=== PATIENT | female | born 1965 | race Caucasian/White ===

== ENCOUNTER 2023-05-18 10:30 | Outpatient (OUT) | payer OTHER, SELFPAY ==
--- NOTE | 2023-05-18 10:33 | MM_ITS ---
Patient Name: TRUDY GARY MR#: [id number] : 1965 Exam Date: 05/18/2023 Ordering Doctor: Non-Staff Physician RADIOLOGY REPORT PROCEDURE: MM TOMOSYNTHESIS SCREENING BI COMPARISON: [facility] MAMM SCREEN 3D [place] CAD, 02/05/2022. MG MAMM SCREEN 3D [place] CAD, 05/06/2021. MG MAMM SCREEN [place] W CAD, 04/20/2020. MG MAMM [place] SCRN W CAD DIG, 07/21/2013. INDICATIONS: Screening Calculator Name NCI Breast Cancer Risk Assessment Tool 5 Year Breast Cancer Risk 1.20% Lifetime Breast Cancer Risk 8.70% Personal Breast Cancer No Personal Ovarian Cancer No Treatments None Family Cancers Grandmother-paternal with breast cancer at age ~45. LOCATION: [facility] BREAST COMPOSITION: Extremely dense, which lowers the sensitivity of mammography. FINDINGS: DIAGNOSTIC CATEGORY 2--BENIGN FINDING: RIGHT BREAST: No significant suspicious finding. No significant change has occurred. LEFT BREAST: No significant suspicious finding. Scattered benign-appearing nodules are present. No significant change has occurred. RECOMMENDATIONS: ROUTINE MAMMOGRAM AND CLINICAL EVALUATION IN 12 MONTHS. PLEASE NOTE: A NORMAL MAMMOGRAM DOES NOT EXCLUDE THE POSSIBILITY OF BREAST CANCER. A CLINICALLY SUSPICIOUS PALPABLE LUMP SHOULD BE BIOPSIED. Dictated by: Soy Thayer M.D. on 05/19/2023 at 11:30 Approved by: Soy Thayer M.D. on 05/19/2023 at 11:35
== END 2023-05-18 10:31 | disposition home or self-care (01) ==
LOC: MAMMO 10:30
DX: Z12.31 Encounter for screening mammogram for malignant neoplasm of breast (principal); Z80.3 Family history of malignant neoplasm of breast
CPT/HCPCS: 77063; 77067

== ENCOUNTER 2024-10-03 07:39 | Outpatient (OUT) | payer OTHER, SELFPAY ==
--- NOTE | 2024-10-03 07:41 | MM_ITS ---
Patient Name: TRUDY GARY MR#: [id number] : 1965 Exam Date: 10/03/2024 Ordering Doctor: MRS. Yuni Fenton NP RADIOLOGY REPORT PROCEDURE: MM TOMOSYNTHESIS SCREENING BI COMPARISON: MM TOMOSYNTHESIS SCREENING BI, 05/18/2023. MG MAMM SCREEN 3D [place] CAD, 02/05/2022. MG MAMM SCREEN 3D [place] CAD, 05/06/2021. MG MAMM [place] SCRN W CAD DIG, 07/21/2013. INDICATIONS: Screening Calculator Name NCI Breast Cancer Risk Assessment Tool 5 Year Breast Cancer Risk 1.40% Lifetime Breast Cancer Risk 8.30% Personal Breast Cancer No Personal Ovarian Cancer No Treatments None Family Cancers Grandmother-paternal with breast cancer at age ~45. LOCATION: [facility] BREAST COMPOSITION: The breasts are extremely dense, which lowers the sensitivity of mammography. FINDINGS: RIGHT BREAST: No significant suspicious finding. LEFT BREAST: No significant suspicious finding. DIAGNOSTIC CATEGORY 1--NEGATIVE. RECOMMENDATIONS: ROUTINE MAMMOGRAM AND CLINICAL EVALUATION IN 12 MONTHS. PLEASE NOTE: A NORMAL MAMMOGRAM DOES NOT EXCLUDE THE POSSIBILITY OF BREAST CANCER. A CLINICALLY SUSPICIOUS PALPABLE LUMP SHOULD BE BIOPSIED. Dictated by: Walter Chaudhry DO on 10/03/2024 at 09:36 Approved by: Walter Chaudhry DO on 10/03/2024 at 09:39
--- OUTSIDE RECORDS SUMMARY | 2024-10-03 07:42 | XMS_ITS | CCD ---
Author Organization [facility] Care Team Providers Care Vault Maker Name Role Phone Louisa Aragon APRN, CNP Primary Care Provider YUNI SANCHEZ Attending Unavailable PALAK PAZ Primary Care Unavailable MYRNA, DR SOY Parham Consulting Unavailable YUNI SANCHEZ Admitting Unavailable YUNI SANCHEZ Consulting Unavailable YUNI SANCHEZ Attending Unavailable PALAK PAZ Primary Care Unavailable MYRNA, DR SOY Parham Consulting Unavailable YUNI SANCHEZ Admitting Unavailable YUNI SANCHEZ Consulting Unavailable DO Palak Paz Primary Care Provider DO Oliver Schuster Emergency Provider Palak Paz Primary Care Unavailable Oliver De Los Santos Attending Unavailable Oliver De Los Santos Admitting Unavailable Louisa Aragon APRN, CNP Primary Care Provider STARR IGNACIO Referring Unavailable LOUISA MOSES Primary Care Unavailable LOUISA MOSES Primary Care Unavailable Sandi Pappas MD Primary Care Provider NANCY GUTIERREZ Attending Unavailable NANCY GUTIERREZ Attending Unavailable YUNI SANCHEZ Attending Unavailable NANCY GUTIERREZ Attending Unavailable Allergies Allergy Classification Reported Allergen(s) Allergy Type Date of Onset Reaction(s) Facility Sulfamethoxazole / Trimethoprim (1 source) Sulfamethoxazole / Trimethoprim Drug Allergy 09-26-19 [facility] (6 sources) Sulfamethoxazole / Trimethoprim Drug Allergy 09-26-19 [facility] (1 source) Sulfamethoxazole / Trimethoprim Drug Allergy [facility] Repository (1 source) Misc-ENV; Translations: [Misc-ENV] Propensity to adverse reactions (disorder) [facility] Repository (4 sources) alatrofloxacin Drug Allergy 09-04-19 Other (See Comments), [facility] Cat Hair Extract Drug Allergy 09-04-19 Other (See Comments) [facility] (4 sources) trovafloxacin Drug Allergy 09-04-19 Other (See Comments), Other, Unknown [facility] (3 sources) Cat Hair Extract Propensity to adverse reactions 09-04-19 Other [facility] Medications Current Medications Medication Drug Class(es) Dates Sig (Normalized) Sig (Original) [id number] 200 actuat albuterol 0.09 mg/actuat metered dose inhaler (6 sources) beta2-Adrenergic Agonist Start: 04-12-2024 take 1 puff(s) by inhalation every six hours albuterol HFA 90 mcg/act inhaler Inhale 1 puff every 6 (six) hours if needed for shortness of breath 04/12/2024 Active Start: 09-08-2022 take 2 puff(s) by inhalation every four hours as needed for wheezing albuterol sulfate HFA (PROVENTIL;VENTOLIN;PROAIR) 108 (90 Base) MCG/ACT inhaler Indications: Mild intermittent asthma without complication Inhale 2 puffs into the lungs every 4 hours as needed for Wheezing 6 each 1 09/08/2022 Active Start: 06-29-2020 albuterol sulf ate HFA 108 (90 Base) MCG/ACT inhaler clobetasol propionate 0.0005 mg/mg topical ointment (2 sources) Corticosteroid Start: 07-16-2021 clobetasol (TEMOVATE) 0.05 % ointment apply to hands TWICE DAILY for up to 3 (THREE) weeks. resume NEEDED for flares 0 07/16/2021 Active crisaborole 0.02 mg/mg topical ointment (1 source) Start: 05-29-2022 EUCRISA 2 % OI NT fluticasone propionate 0.05 mg/actuat metered dose nasal spray (1 source) Corticosteroid take 2 spray(s) nasal route once daily fluticasone (FLONASE) 50 MCG/ACT nasal spray 2 sprays in each nostril Nasally Once a day 0 Active 60 actuat formoterol fumarate 0.005 mg/actuat / mometasone furoate 0.1 mg/actuat metered dose inhaler (4 sources) Corticosteroid, beta2-Adrenergic Agonist Start: 08-11-2022 DULERA 100-5 MCG/ACT inhaler Indications: Mild intermittent asthma without complication USE 2 INHALATIONS BY MOUTH TWICE DAILY 39 g 3 08/11/2022 Active Start: 09-13-2020 DULERA 100-5 M CG/ACT inhaler levothyroxine sodium 0.05 mg oral tablet (7 sources) l-Thyroxine Start: 09-29-2023 take 1 tablet by mouth once daily levothyroxine (Synthroid, Levoxyl) 50 MCG tablet Take 1 tablet by mouth Daily 09/29/2023 Active Start: 10-15-2022 take 1 tablet by mariusz th once daily levothyroxine (SYNTHROID) 50 MCG tablet Indications: Hypothyroidism, unspecified type TAKE 1 TABLET BY MOUTH DAILY 90 tablet 3 10/15/2022 Active Start: 05-16-2021 take 1 tablet by mariusz th once daily levothyroxine (SYNTHROID) 50 MCG tablet Indications: Hypothyroidism, unspecified type TAKE 1 TABLET BY MOUTH DAILY 90 tablet 3 05/16/2021 Active Start: 12-26-2020 take 1 tablet by mariusz th once daily levothyroxine (SYNTHROID) 50 MCG tablet Indications: Hypothyroidism, unspecified type Take 1 tablet by mouth Daily 90 tablet 1 12/26/2020 Active minocycline 100 mg oral capsule (2 sources) Tetracycline-class Drug Start: 09-20-2020 minocy burch (MINOCIN;DYNACIN) 100 MG capsule Multiple Vitamin (MULTIVITAMIN ADULT PO) (2 sources) Multiple Vitamin (MULTIVITAMIN ADULT PO) Take by mouth 0 Active Probiotic Product (PROBIOTIC ADVANCED PO) (2 sources) Probiotic Produc t (PROBIOTIC ADVANCED PO) Take by mouth 0 Active ruxolitinib (3 sources) Start: 10-19-2023 Ruxolitinib Ph osphate (Opzelura) 1.5 % cream Indications: Other atopic dermatitis Apply to affected areas, once a day when flared, 30 day supply 60 g 11 10/19/2023 Active Completed/Discontinued Medications Medication Drug Class(es) Dates Sig (Normalized) Sig (Original) barium sulfate (READI-CAT 2) 2 % suspension 450 mL (1 source) Start: 08-20-2021 End: 08-20-2021 barium sulfate (READI-CAT 2) 2 % suspension 450 mL gadobenate dimeglumine (MULTIHANCE) injection 20 mL (1 source) Start: 01-30-2021 End: 01-30-2021 gadobenate dimeglumine (MULTIHANCE) injection 20 mL iopamidol (ISOVUE-300) 61 % injection 100 mL (1 source) Start: 08-20-2021 End: 08-20-2021 iopamidol (ISOVUE-300) 61 % injection 100 mL iopamidol (ISOVUE-370) 76 % injection 100 mL (1 source) Start: 11-27-2022 End: 11-27-2022 iopamidol (ISOVUE-370) 76 % injection 100 mL 50 ml sodium chloride 9 mg/ml injection (1 source) Start: 11-27-2022 End: 11-27-2022 0.9 % sodium chloride bolus Problems Problem Classification Problem Date Documented Date Episodic/Chronic Abdominal pain (3 sources) Generalized abdominal pain; Translations: [Generalized abdominal pain] Onset: 11-27-2022 Episodic Allergic reactions (2 sources) Atopic dermatitis; Translations: [Other atopic dermatitis] 04-18-2024 Chronic Asthma (1 source) Moderate persistent asthma with (acute) exacerbation; Translations: [Moderate persistent asthma with (acute) exacerbation] Onset: 08-21-2022 Chronic Diverticulosis and diverticulitis (2 sources) Diverticulitis of intestine; Translations: [Diverticulitis of intestine, part unspecified, without perforation or abscess without bleeding] Onset: 11-27-2022 Chronic Other and unspecified benign neoplasm (2 sources) Melanocytic nevus of trunk; Translations: [Melanocytic nevi of trunk] 04-18-2024 Episodic Other eye disorders (1 source) Ocular pain, unspecified eye; Translations: [Ocular pain, unspecified eye] Onset: 04-09-2022 Episodic Other screening for suspected conditions (not mental disorders or infectious disease) (1 source) Ultrasound scan abnormal; Translations: [Abnormal findings on diagnostic imaging of other specified body structures] Chronic Other screening for suspected conditions (not mental disorders or infectious disease) (4 sources) Encounter for screening mammogram for malignant neoplasm of breast; Translations: [ENC SCR MAMMO MALIG NEOPLASM BREAST] Onset: 02-05-2022 Episodic Other skin disorders (1 source) Localized swelling of chest wall; Translations: [Localized swelling, mass and lump, trunk] Episodic Other skin disorders (1 source) Soft tissue swelling; Translations: [Localized swelling, mass and lump, trunk] Episodic Other skin disorders (2 sources) Milia; Translations: [Epidermal cyst] 04-18-2024 Episodic Other skin disorders (2 sources) Lentiginosis; Translations: [Other melanin hyperpigmentation] 04-18-2024 Episodic Other skin disorders (2 sources) Seborrheic keratosis; Translations: [Other seborrheic keratosis] 04-18-2024 Episodic Residual codes; unclassified (1 source) Family history of malignant neoplasm of breast; Translations: [FAMILY HX MALIG NEOPLASM OF BREAST] Onset: 02-07-2022 Episodic Results Test Name Value Interpretation Reference Range Facility Hemoglobin A1Con 09-30-2023 Glucose [Mass/Vol] 114 mg/dL Normal [facility] Comment on above: Result Comment: The ADA and AACC recommend providing the estimated average glucose result to permit better patient understanding of their HBA1c result. Performed at [facility], [address] [place] [address] . HbA1c (Bld) [Mass fraction] 5.6 % Normal 4.0-6.0 [facility] CBC With Platelet and Differ entialon 09-29-2023 Basophils (Bld) [#/Vol] 0.1 10*3/uL Normal 0.0-0.2 [facility] Comment on above: Performed By: #### C BCWD #### [facility] [address] [place] [address] Basophils/100 WBC (Bld) 1.5 % Normal [facility] Comment on above: Performed By: #### C BCWD #### [facility] [address] [place] [address] Eosinophils (Bld) [#/Vol] 0.4 10*3/uL Normal 0.0-0.7 [facility] Comment on above: Performed By: #### C BCWD #### [facility] [address] [place] [address] Eosinophils/100 WBC (Bld) 6.9 % Normal [facility] Comment on above: Performed By: #### C BCWD #### [facility] [address] [place] [address] Erythrocyte distribution width (RBC) [Ratio] 14.2 % Normal 11.5-14.5 [facility] Comment on above: Performed By: #### C BCWD #### [facility] [address] [place] [address] Hematocrit (Bld) [Volume fraction] 42.9 % Normal 37.0-47.0 [facility] Comment on above: Performed By: #### C BCWD #### [facility] [address] [place] [address] Hemoglobin (Bld) [Mass/Vol] 13.8 g/dL Normal 12.0-16.0 [facility] Comment on above: Performed By: #### C BCWD #### [facility] [address] [place] [address] Lymphocytes (Bld) [#/Vol] 2.2 10*3/uL Normal 1.0-4.8 [facility] Comment on above: Performed By: #### C BCWD #### [facility] [address] [place] [address] Lymphocytes/100 WBC (Bld) 36.3 % Normal [facility] Comment on above: Performed By: #### C BCWD #### [facility] [address] [place] [address] MCH (RBC) [Entitic mass] 29.7 pg Normal 27.0-31.3 [facility] Comment on above: Performed By: #### C BCWD #### [facility] [address] [place] [address] MCHC 32.2 % Low 33.0-37.0 [facility] Comment on above: Performed By: #### C BCWD #### [facility] [address] [place] [address] MCV (RBC) [Entitic vol] 92.5 fL Normal 79.4-94.8 [facility] Comment on above: Performed By: #### C BCWD #### [facility] [address] [place] [address] Monocytes (Bld) [#/Vol] 0.4 10*3/uL Normal 0.2-0.8 [facility] Comment on above: Performed By: #### C BCWD #### [facility] [address] [place] [address] Monocytes/100 WBC (Bld) 6.6 % Normal [facility] Comment on above: Performed By: #### C BCWD #### [facility] [address] [place] [address] Neutrophils (Bld) [#/Vol] 3.0 10*3/uL Normal 1.4-6.5 [facility] Comment on above: Performed By: #### C BCWD #### [facility] [address] [place] [address] Neutrophils/100 WBC (Bld) 48.5 % Normal [facility] Comment on above: Performed By: #### C BCWD #### [facility] [address] [place] [address] Platelets (Bld) [#/Vol] 321 10*3/uL Normal 130-400 [facility] Comment on above: Performed By: #### C BCWD #### [facility] [address] [place] [address] RBC (Bld) [#/Vol] 4.64 10*6/uL Normal 4.20-5.40 [facility] Comment on above: Performed By: #### C BCWD #### [facility] [address] [place] [address] WBC (Bld) [#/Vol] 6.1 10*3/uL Normal 4.8-10.8 [facility] Comment on above: Performed By: #### C BCWD #### [facility] [address] [place] [address] Comprehensive Metabolic Pane edwar 09-29-2023 Albumin [Mass/Vol] 4.2 g/dL Normal 3.5-4.6 [facility] Comment on above: Performed By: #### C MP #### [facility] [address] [place] [address] ALP [Catalytic activity/Vol] 60 U/L Normal 40-130 [facility] Comment on above: Performed By: #### C MP #### [facility] [address] [place] [address] ALT [Catalytic activity/Vol] 19 U/L Normal 0-33 [facility] Comment on above: Performed By: #### C MP #### [facility] [address] [place] [address] Anion gap [Moles/Vol] 10 mmol/L Normal 9-15 [facility] Comment on above: Performed By: #### C MP #### [facility] [address] [place] [address] AST [Catalytic activity/Vol] 22 U/L Normal 0-35 [facility] Comment on above: Performed By: #### C MP #### [facility] [address] [place] [address] Bilirubin [Mass/Vol] 0.4 mg/dL Normal 0.2-0.7 [facility] Comment on above: Performed By: #### C MP #### [facility] [address] [place] [address] Calcium [Mass/Vol] 9.2 mg/dL Normal 8.5-9.9 [facility] Comment on above: Performed By: #### C MP #### [facility] [address] [place] [address] Chloride [Moles/Vol] 102 mmol/L Normal 95-107 [facility] Comment on above: Performed By: #### C MP #### [facility] [address] [place] [address] CO2 [Moles/Vol] 25 mmol/L Normal 20-31 [facility] Comment on above: Performed By: #### C MP #### [facility] [address] [place] [address] Creatinine [Mass/Vol] 0.85 mg/dL Normal 0.50-0.90 [facility] Comment on above: Performed By: #### C MP #### [facility] [address] [place] [address] GFR 80.2 Normal >60 [facility] Comment on above: Result Comment: Eugenia atric calculator link [email or web address]://[email or web address].org/professionals/kdoqi/gfr_[email or web address] Effective Mar 17, 2022 These results are not intended for use in patients <18 years of age. eGFR results are calculated without a race factor using the 2020 CKD-EPI equation. Careful clinical correlation is recommended, particularly when comparing to results calculated using previous equations. The CKD-EPI equation is less accurate in patients with extremes of muscle mass, extra-renal metabolism of creatinine, excessive creatinine ingestion, or following therapy that affects renal tubular secretion. Performed By: #### C MP #### [facility] [address] [place] [address] Globulin (S) [Mass/Vol] 2.5 g/dL Normal 2.3-3.5 [facility] Comment on above: Performed By: #### C MP #### [facility] [address] [place] [address] Glucose [Mass/Vol] 81 mg/dL Normal 70-99 [facility] Comment on above: Performed By: #### C MP #### [facility] [address] [place] [address] Potassium [Moles/Vol] 4.5 mmol/L Normal 3.4-4.9 [facility] Comment on above: Performed By: #### C MP #### [facility] [address] [place] [address] Protein [Mass/Vol] 6.7 g/dL Normal 6.3-8.0 [facility] Comment on above: Performed By: #### C MP #### [facility] [address] [place] [address] Sodium [Moles/Vol] 137 mmol/L Normal 135-144 [facility] Comment on above: Performed By: #### C MP #### [facility] [address] [place] [address] Urea nitrogen [Mass/Vol] 11 mg/dL Normal 6-20 [facility] Comment on above: Performed By: #### C MP #### [facility] [address] [place] [address] Lipid Panelon 09-29-2023 Cholesterol [Mass/Vol] 209 mg/dL Critically high 0-199 [facility] Comment on above: Result Comment: ATP III Cholesterol Classification is Borderline High. Performed By: #### L IPID #### [facility] [address] [place] [address] Cholesterol in HDL [Mass/Vol] 53 mg/dL Normal 40-59 [facility] Comment on above: Result Comment: ATP III HDL Cholesterol Classification is Desirable. Expected Values: Males: >55 = No Risk 35-55 = Moderate Risk <35 = High Risk Females: >65 = No Risk 45-65 = Moderate Risk <45 = High Risk NCEP Guidelines: Third Report October 2000 >59 = negative risk factor for CHD <40 = major risk factor for CHD Performed By: #### L IPID #### [facility] [address] [place] [address] Cholesterol in LDL [Mass/Vol] 141 mg/dL Critically high 0-129 [facility] Comment on above: Result Comment: ATT III Classification is Borderline High. Performed By: #### L IPID #### [facility] [address] [place] [address] Triglyceride [Mass/Vol] 77 mg/dL Normal 0-150 [facility] Comment on above: Result Comment: ATP III Triglycerides Classification is Normal. Performed By: #### L IPID #### [facility] [address] [place] [address] TSH w/Reflexon 09-29-2023 TSH w/Reflex 1.070 uIU/mL Normal 0.440-3.86 [facility] Comment on above: Result Comment: Free T4 will automatically reflex with a TSH result of <0.270 or >4.200 Performed By: #### T SHR #### [facility] [address] [place] [address] CT ABDOMEN PELVIS W IV CONTR Eduardo 11-27-2022 CT ABDOMEN PELVIS W IV CONTRAST EXAMINATION: CT OF THE ABDOMEN AND PELVIS WITH CONTRAST 11/27/2022 9:16 am TECHNIQUE: CT of the abdomen and pelvis was performed with the administration of intravenous contrast. Multiplanar reformatted images are provided for review. Automated exposure control, iterative reconstruction, and/or weight based adjustment of the mA/kV was utilized to reduce the radiation dose to as low as reasonably achievable. COMPARISON: August 2021 HISTORY: ORDERING SYSTEM PROVIDED HISTORY: Lower abdominal pain, Acute diverticulitis TECHNOLOGIST PROVIDED HISTORY: Additional Contrast?->Radiologi st Recommendation STAT Creatinine as needed:->No Reason for exam:->r/o abd pin, diverticulitis What reading provider will be dictating this exam?->CRC FINDINGS: Lower Chest: Visualized portion of the lower chest demonstrates no acute abnormality. Organs: The liver is homogeneous. The gallbladder is absent. The pancreas and spleen are normal. The adrenal glands are normal. The kidneys are normal. GI/Bowel: There is no evidence of bowel obstruction. No evidence of abnormal bowel wall thickening or distension. Large amount stool in colon. There is moderate sigmoid diverticulosis. There may be subtle inflammation in the proximal sigmoid colon. No complication is seen. Feculent material is seen in distal small bowel loops. Pelvis: No pelvic mass, adenopathy, or fluid collection. Peritoneum/Retroperi toneum: No evidence of lymphadenopathy. Aorta is normal in caliber. Bones/Soft Tissues: No acute abnormality of the visualized osseous structures. IMPRESSION: Mild sigmoid diverticulitis without complication. Large amount of stool in colon with feculent material also seen in distal small bowel loops. Interpreted by: Jong Monterroso MD Signed by: Jong Monterroso MD 11/27/22 Final result Normal [facility] CT ABDOMEN PELVIS W IV CONTR AST Additional Contrast? Radiologist Recommendationon 11-27-2022 Mild sigmoid diverticulitis without complication. Large amount of stool in colon with feculent material also seen in distal small bowel loops. [facility] RADIOLOGY EXAMINATION: CT OF THE ABDOMEN AND PELVIS WITH CONTRAST 11/27/2022 9:16 am TECHNIQUE: CT of the abdomen and pelvis was performed with the administration of intravenous contrast. Multiplanar reformatted images are provided for review. Automated exposure control, iterative reconstruction, and/or weight based adjustment of the mA/kV was utilized to reduce the radiation dose to as low as reasonably achievable. COMPARISON: August 2021 HISTORY: ORDERING SYSTEM PROVIDED HISTORY: Lower abdominal pain, Acute diverticulitis TECHNOLOGIST PROVIDED HISTORY: Additional Contrast?->Radiologi st Recommendation STAT Creatinine as needed:->No Reason for exam:->r/o abd pin, diverticulitis What reading provider will be dictating this exam?->CRC FINDINGS: Lower Chest: Visualized portion of the lower chest demonstrates no acute abnormality. Organs: The liver is homogeneous. The gallbladder is absent. The pancreas and spleen are normal. The adrenal glands are normal. The kidneys are normal. GI/Bowel: There is no evidence of bowel obstruction. No evidence of abnormal bowel wall thickening or distension. Large amount stool in colon. There is moderate sigmoid diverticulosis. There may be subtle inflammation in the proximal sigmoid colon. No complication is seen. Feculent material is seen in distal small bowel loops. Pelvis: No pelvic mass, adenopathy, or fluid collection. Peritoneum/Retroperi toneum: No evidence of lymphadenopathy. Aorta is normal in caliber. Bones/Soft Tissues: No acute abnormality of the visualized osseous structures. [facility] RADIOLOGY Jong Monterroso MD - 11/27/2022 EXAMINATION: CT OF THE ABDOMEN AND PELVIS WITH CONTRAST 11/27/2022 9:16 am TECHNIQUE: CT of the abdomen and pelvis was performed with the administration of intravenous contrast. Multiplanar reformatted images are provided for review. Automated exposure control, iterative reconstruction, and/or weight based adjustment of the mA/kV was utilized to reduce the radiation dose to as low as reasonably achievable. COMPARISON: August 2021 HISTORY: ORDERING SYSTEM PROVIDED HISTORY: Lower abdominal pain, Acute diverticulitis TECHNOLOGIST PROVIDED HISTORY: Additional Contrast?->Radiologi st Recommendation STAT Creatinine as needed:->No Reason for exam:->r/o abd pin, diverticulitis What reading provider will be dictating this exam?->CRC FINDINGS: Lower Chest: Visualized portion of the lower chest demonstrates no acute abnormality. Organs: The liver is homogeneous. The gallbladder is absent. The pancreas and spleen are normal. The adrenal glands are normal. The kidneys are normal. GI/Bowel: There is no evidence of bowel obstruction. No evidence of abnormal bowel wall thickening or distension. Large amount stool in colon. There is moderate sigmoid diverticulosis. There may be subtle inflammation in the proximal sigmoid colon. No complication is seen. Feculent material is seen in distal small bowel loops. Pelvis: No pelvic mass, adenopathy, or fluid collection. Peritoneum/Retroperi toneum: No evidence of lymphadenopathy. Aorta is normal in caliber. Bones/Soft Tissues: No acute abnormality of the visualized osseous structures. IMPRESSION: Mild sigmoid diverticulitis without complication. Large amount of stool in colon with feculent material also seen in distal small bowel loops. [facility] Radiology Study observation (narrative) [facility] [employer] CT ABDOMEN PELVIS W IV CONTR AST Additional Contrast? Radiologist RecommendationOrdered By: Jong Monterroso on 11-27-2022 [facility] Work Phone: Trichmonas Vaginalis Screen (EIA)on 10-15-2022 Trichomonas Vaginalis Screen (EIA) Negative Normal [facility] Comment on above: Performed By: #### E TRIC #### [facility] [address] [place] [address] Wet [employer] On xie 10-15-2022 Wet Prep Clue Cellls None Seen Normal [facility] Comment on above: Performed By: #### W ETPR #### [facility] [address] [place] [address] Wet Prep Trichomonas See EIA Normal [facility] Comment on above: Performed By: #### W ETPR #### [facility] [address] [place] [address] Wet Prep Yeast None Seen Normal [facility] Comment on above: Performed By: #### W ETPR #### [facility] [address] [place] [address] Culture, Genitalon 3 Culture, Genital ORDER#: [id number] ORDERED BY: LOUISA MOSES SOURCE: Vagina Genital COLLECTED: 10/14/22 15:38 ANTIBIOTICS AT JACKELINE.: RECEIVED : 10/14/22 17:31 Culture, Genital FINAL 10/18/22 10:34 Cult,Genital: NO GROWTH Performed at [place] [id number] ([phone] Normal [facility] Comment on above: Performed By: #### C XGEN #### [facility] [address] [place] [address] XR CHEST (2 VW)on 08-21-2022 XR CHEST (2 VW) EXAMINATION: TWO XRAY VIEWS OF THE CHEST 08/21/2022 4:40 pm COMPARISON: None. HISTORY: ORDERING SYSTEM PROVIDED HISTORY: Moderate persistent asthma with acute exacerbation TECHNOLOGIST PROVIDED HISTORY: Reason for exam:->rule out pneumonia Is the patient ?->No What reading provider will be dictating this exam?->CRC FINDINGS: The lungs are without acute focal process. There is no effusion or pneumothorax. The cardiomediastinal silhouette is without acute process. The osseous structures are without acute process. IMPRESSION: No acute process. Interpreted by: Bao Martin MD Signed by: Bao Martin MD 08/21/22 Final result Normal [facility] MG MAMM SCREEN 3D JANAK CADon 02-05-2022 MG MAMM SCREEN 3D JANAK CAD Patient: TRUDY MCKEON Exam Date: 02/05/2022 : 1965 Gender:F Ordering : MRS. YUNI SANCHEZ COMMUNICATIONS ATTENDANT Admission #: [id number] Family : Order #: [id number] CLICK HERE TO VIEW EXAM RADIOLOGY REPORT PROCEDURE: MAMMOGRAM SCREENING 3D BILATERAL CAD COMPARISON: MG MAMM SCREEN 3D JANAK CAD, 05/06/2021. MG MAMM SCREEN JANAK W CAD, 04/20/2020. INDICATIONS: Screening mammography Calculator Name NCI Breast Cancer Risk Assessment Tool 5 Year Breast Cancer Risk 1.20% Lifetime Breast Cancer Risk 8.80% Personal Breast Cancer No Personal Ovarian Cancer No Treatments None Family Cancers Grandmother-paternal with breast cancer at age 45. LOCATION: [facility] BREAST COMPOSITION: Extremely dense, which lowers the sensitivity of mammography. FINDINGS: DIAGNOSTIC CATEGORY 2--BENIGN FINDING: RIGHT BREAST: No significant suspicious finding. No significant change has occurred. LEFT BREAST: No significant suspicious finding. Scattered benign-appearing nodules are present. No significant change has occurred. RECOMMENDATIONS: ROUTINE MAMMOGRAM AND CLINICAL EVALUATION IN 12 MONTHS. PLEASE NOTE: A NORMAL MAMMOGRAM DOES NOT EXCLUDE THE POSSIBILITY OF BREAST CANCER. A CLINICALLY SUSPICIOUS PALPABLE LUMP SHOULD BE BIOPSIED. Dictated by: Soy Thayer M.D. on 02/07/2022 at 12:35 Approved by: Soy Thayer M.D. on 02/07/2022 at 12:43 Normal [facility] CT ABDOMEN PELVIS W IV CONTR AST Additional Contrast? Radiologist Recommendationon 08-20-2021 Impression: 1. Acute diverticulosis coli with evidence of small microperforations are seen. 2. No hydronephrosis or appendicitis is seen All CT scans at this facility use dose modulation, iterative reconstruction, and/or weight based dosing [facility] RADIOLOGY Comparison: No prior History: Abdominal pain, history of diverticulitis Technique: CT ABDOMEN PELVIS W IV CONTRAST Helically Acquired CT of the abdomen and pelvis was performed following the administration of oral contrast and during the intravenous infusion of 100 mL of Isovue-370. Axial delayed images were also performed. Reformatted sagittal and coronal images were also obtained. Findings: The visualized bases of the lungs contain no consolidating pneumonia, pleural effusion or pneumothorax. There is bowel wall thickening of the sigmoid colon. There are diverticula seen in the colon and is most significant in the sigmoid colon. Pericolic stranding is noted. A small focus of air is seen in the anterior pelvis (series 2, image 70). 2 other small areas are seen more posteriorly (series 2, image 69). No free fluid is visualized. The gallbladder surgically absent. The liver, spleen, pancreas and gallbladder are unremarkable. No focal masses identified in the adrenal glands. Bilaterally both kidneys show uptake and excretion of contrast with no evidence for hydronephrosis or renal calculi. The appendix is normal. No aneurysm or dissection is present. A small umbilical hernia is noted that contains fat. No small bilateral inguinal hernias are seen that contain fat. The urinary bladder distends normally. The osseous structures contain no destructive lesions. Degenerative changes are seen and there is a rotoscoliosis noted. No destructive bony lesions are seen. [facility] ALEXI Morillo PatriciaDO - 08/20/2021 Comparison: No prior History: Abdominal pain, history of diverticulitis Technique: CT ABDOMEN PELVIS W IV CONTRAST Helically Acquired CT of the abdomen and pelvis was performed following the administration of oral contrast and during the intravenous infusion of 100 mL of Isovue-370. Axial delayed images were also performed. Reformatted sagittal and coronal images were also obtained. Findings: The visualized bases of the lungs contain no consolidating pneumonia, pleural effusion or pneumothorax. There is bowel wall thickening of the sigmoid colon. There are diverticula seen in the colon and is most significant in the sigmoid colon. Pericolic stranding is noted. A small focus of air is seen in the anterior pelvis (series 2, image 70). 2 other small areas are seen more posteriorly (series 2, image 69). No free fluid is visualized. The gallbladder surgically absent. The liver, spleen, pancreas and gallbladder are unremarkable. No focal masses identified in the adrenal glands. Bilaterally both kidneys show uptake and excretion of contrast with no evidence for hydronephrosis or renal calculi. The appendix is normal. No aneurysm or dissection is present. A small umbilical hernia is noted that contains fat. No small bilateral inguinal hernias are seen that contain fat. The urinary bladder distends normally. The osseous structures contain no destructive lesions. Degenerative changes are seen and there is a rotoscoliosis noted. No destructive bony lesions are seen. IMPRESSION: Impression: 1. Acute diverticulosis coli with evidence of small microperforations are seen. 2. No hydronephrosis or appendicitis is seen All CT scans at this facility use dose modulation, iterative reconstruction, and/or weight based dosing [employer] Phone: Radiology Study observation (narrative) [employer] Phone: CT ABDOMEN PELVIS W IV CONTR AST Additional Contrast? 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 MG MAMM SCREEN JANAK W CAD, 12/20/2018. INDICATIONS: Screening mammography Calculator Name NCI Breast Cancer Risk Assessment Tool 5 Year Breast Cancer Risk 1.20% Lifetime Breast Cancer Risk 9.00% Personal Breast Cancer No Personal Ovarian Cancer No Treatments None Family Cancers Grandmother-paternal with breast cancer at age 45. LOCATION: [facility] BREAST COMPOSITION: Extremely dense, which lowers the sensitivity of mammography. FINDINGS: DIAGNOSTIC CATEGORY 2--BENIGN FINDING: RIGHT BREAST: No significant suspicious finding. No significant change has occurred. LEFT BREAST: No significant suspicious finding. Scattered benign-appearing nodules are present. No significant change has occurred. RECOMMENDATIONS: ROUTINE MAMMOGRAM AND CLINICAL EVALUATION IN 12 MONTHS. PLEASE NOTE: A NORMAL MAMMOGRAM DOES NOT EXCLUDE THE POSSIBILITY OF BREAST CANCER. A CLINICALLY SUSPICIOUS PALPABLE LUMP SHOULD BE BIOPSIED. Dictated by: Soy Thayer M.D. on 05/07/2021 at 11:54 Approved by: Soy Thayer M.D. on 05/07/2021 at 11:59 Normal [facility] MRI CHEST W CONTRASTOrdered By: Louisa Moses on 02-01-2021 No suspicious mass or suspicious findings. Degenerative changes involving the sternoclavicular joints. [employer] Phone: EXAMINATION: MRI CHEST W CONTRAST CLINICAL HISTORY: Soft tissue swelling of the chest wall. Abnormal ultrasound. COMPARISONS: Soft tissue ultrasound 01/07/2021. Chest x-ray 09/25/2020. TECHNIQUE: Routine MRI of the chest wall, with and without contrast. Given 20 mL of intravenous MultiHance. RESULT: There is no suspicious mass. There is no suspicious enhancement. No destructive osseous lesions. Degenerative changes involving the bilateral sternoclavicular joints, mild, and symmetric, which appears to correlate with the finding on the recent ultrasound. Visualized musculature unremarkable. Visualized thorax grossly unremarkable within limits of the study. [employer] Phone: Juan Jose, [employer] Incoming Radiant Results From [employer] - 02/01/2021 8:53 AM EDT EXAMINATION: MRI CHEST W CONTRAST CLINICAL HISTORY: Soft tissue swelling of the chest wall. Abnormal ultrasound. COMPARISONS: Soft tissue ultrasound 01/07/2021. Chest x-ray 09/25/2020. TECHNIQUE: Routine MRI of the chest wall, with and without contrast. Given 20 mL of intravenous MultiHance. RESULT: There is no suspicious mass. There is no suspicious enhancement. No destructive osseous lesions. Degenerative changes involving the bilateral sternoclavicular joints, mild, and symmetric, which appears to correlate with the finding on the recent ultrasound. Visualized musculature unremarkable. Visualized thorax grossly unremarkable within limits of the study. IMPRESSION: No suspicious mass or suspicious findings. Degenerative changes involving the sternoclavicular joints. [employer] Phone: [employer] Phone: Coding Summary.on 01-07-2021 Coding Summary. [id number] Gh0bWw+PGhlYWQ+PE1FV NXxD35zfYZddD1YN3qUZ E8YEVMFPDTCIB0IIM2le CS6BAehA8KxoeLv NqsclMJxJC29UJw0QRF2 yQgcTTazgP9voWUrX4s5 UrUvPI29oL15COfxCOCc HfE6SaOcofjkuZDg O1naEqJgzIIyNog+PHRh YmxlIHdpZHRoPScxMDAl FpWpnQosHE9gEs5rPAUt LWNvbGxhcHNlOiBj f2tmFUZfPFqnZT6efBrl S5EozQY6TOBwu1y1Yz21 dHI+MNSzVQJ9nNkqENwh m131RdGmm8yjBWW0 zSCmXZpaGLI9Y34zj5Q8 APVpSLFvCYR1zUL8sC1p pCayckzeJ2XwzKLtQrF2 AGR8cWUszZ8niSxg tenjeA4hSmy+X45EMO1K RGSSVZ2SGry7I9ScNfzl dHI+VB09ZYMpWD30bHQo lHWgo2yzlQv6CnLs WUDnERY2fRmlOUshd7Nl XUKvZ68jaJUxh5F2ERHt gPztzULpFnXhjZY4nI6y PGmfyusne9getcdp Cqtwn2slwq73aQ48R80a NKycYNPkTXB9CLNbRERi lYafac6llH3bNl7+IDxj i2owt3gpgFv6JsDa DOZdwcGywEfvXBR5r5Hy Ay76S5CqvDhri4ChZvi1 kg57wMJxs8W9qOF2EIrj CGAicH9hJRwqOtT8 DGIqAcWwvO99sFMtDAyx Bw1ogJcsoJhgBH2mJVFv knqbWACksR6vSMNmiGWs lKyxBK8eVOYusldc o312WkJwGSM4UYEtbCBk C9NzoW3uXbOjTVGzKSCo B3FvbPWmQIrtZ865ZExv NgH1BQYluaShI5Yi RFDzzHhjKxL8v8W5Sd3Z l2GihzalOJH6QBcnSSN2 EeA7PiLdEyT1U7OuKuk5 VQHtsIykUB3gN9Ax FHJgltvmmyqfqOT4YOIm DVUlxX84iFZyNGzmKh1l p1B9g049AHNlYSQecY74 Xl2ahQdoYDVxnWIC rA8rwpyaw0izcoehBvPb ZKLlBPz6ZPn2PDLdsKek KoVlZTX7ZnO5NWL5qOFs qM3qqDbxljtkvW4f Oyc+P29ygW3dDOQ3JEP7 vphxCUTfyzNhYP26HU02 N1LjTuvrcYZgeUW+PGRp vcXtiYfmPD3uVxBe y5pii9ZeXUrcV8EtPSXc URlmQxg2LCQqXUE0zAN5 pY6xZXZlSVicf0Z3yZO3 Y3QubvLpdk2fl6om RZVqMLimR32gsTFdz8E1 RUDvmLH0TMPhkVkqArBa vO63Bvp+VZGulKatx3Ox Teqpz9vic1aofGf2 IjMwJSIgdmFsaWduPSJ0 f1HlFq57U35kXNeuVXJd NDIhCHTgAQRjxIlday4k nC7oJi6+PGNvbCB3 gHY1uB4sWIUnCaT1SByr G642MpGbmUTiVvlvw8lm d4rvoGt0TeExLRWwrjLz cWlcKTW8d6CsTp88 C79sJEbiQIVoFNEuZDZl TNPwgNsfmv1xeR6uNz3+ LY3ro9fohv55sD51lVI+ TYNbECV4xUvsPYon RTMfeI8tNKvrQhW4UMYl RcFmqU23sNHnWOnpPj1p wHnnfMkhLU6iFOMnoqsc l045RgUiw0ejKIYg eDPpHIxlDIU2J61kj8P7 PMOlRMJrBMS9sZL6tI6n bGlnbjogbGVmdDsgdmVy zGkyQRnxOMayN456 IHRvcDsnPlBhdGllbnQg HqJyWVz8A6TqBjc0AMDg sUljWB8adGBuDJbnZp7c oWxdeBchGQ4vAFIh sepbw213DbEzr4bzSMLu eOOsLNcvQPV9F19to8M0 FARdIYZeZJD3bSZ4mG4r bGlnbjogbGVmdDsg riHoqYifQTxnLLxuY331 IHRvcDsnPkJpcnRoIERh mVV2VO59US41bAMse1B1 vPR4H8XiUYXspuli fcmfdPW8SECdAAXttR76 Pa5bcHruDk9eZPPmODF7 BLWnpCOwX4YekA4aPsSo OCIrHDWeC7GrdSCy MZnlL713IWyoZtE0DVYn uoRlD9ApHXYzcHqtZxW0 g8R3Rx6BU8I0RA15SP20 xWNdc7D2fLL8W3Qn PWKdgvvnykhyqSV5MCSy DODjpP43Xg3ipWpuSh2k NPYtQZC2MJGxqYYzW2Do eW7vZbCwQWKzOFLo X7CayMPdBNoiZ670UOtg IuV0SZCumxDkD8KdTKFo gKnkYkF9a9U7Rt2KJYb0 JV57MB12zLWas2P3 aER8H3IsGWKeceyxxmrr sRV3HJMnORStaP31Mm1o iStlDg8wBCDtFYT7PNQn yJUaU1RmqV7gLmPj QDVnJPTnP8AotNYmKZhs D379ZOlmYcE7ZAKkdySi L9TbLTYqrYrrOeJ8k4C6 Ak4AESAkAX16HVX6 dVR9GC33AP17K0TaNnyw dGFibGU+PHRhYmxlIHdp ZHRoPScxMDAlJyBzdHls JJ2eUm6pULRyLPDu zGgnxRDmXnXpi0skVXTc SQygPH1pmXzqH0ZffDW1 URApc6o5Uj45W59fK0Fq dXA+QLAmdMV8dDW2 hN2oLrMqKhT0QXpnY074 PdStqVLvLfjvv8jxh8zl tUw1EmI4NPFxvqIxpDae KTO4w1KzNf76D77j IHdpZHRoPSIxNSUiIHZh vXtnav9cpJ9vWz5+PGNv wJG5qAP6dJ3kQrUxYdC1 GJhbW911VxYwpWSy Ujwdh5fxk2peaYa9ZrPp BIMrbzOeyEazMDU6b8Li Lv84V6WesYywn1VjUvj4 kf40nQTvc4P4eDU5 D2QbOECxnkuozETtcFky RE1kJRLqzdadWQDhnV7d CTZuD1s1MtBeKeY2HCui N6JpacW5ZGPogFMb XDrrJHM0B59jn0Q2ENMx IRLlVTP9zWQ5rB8keJtk bjogbGVmdDsgdmVydGlj EXmpGIbsH967AWWn lIxhPDHivB6qHZTelJYt dObpTK4xCUWhpiyjOwmK O9GMFNFQD74JUEPJA9Sb UzwvdGQ+PHRkIHN0 bJsvNDfuUURmhU0jFURf P0r8PqCyTeH0OOzsR9Qy DYUndxalYt27jE5zKuEv YxU5KVgiH7WewvM2 OTOerJEkWEqgGVX5T91q l4S7TRKxBRQvPZJ1eBV2 nH1zxZtmskruuSDyaDwc dmVydGljYWwtYWxp U124NREotRpiBpDbEwI9 AdY8Mje8Q7DcSqz9CWBo iPgnYC2jzNNkLDxlXg0h mNqfoLedEZ5jNQMe hultSBCljC1fNBApzCUn fXoeDV5aREYynbecs017 PwCrYMK1HZXcqIEdI5Dr nZ4bIoPfNEIfWXLz V2WzqRKsPMviV700NDmd KsF2SUXczbQsU2MyTUYb dPfkFkM2o2N5Bn08JvEC ZWFyczwvdGQ+PHRk IBG7jFydFZawCASwaM4f AQCyR5h2QqHcMsZ8EGao L0LyBCAzvjkbAa02nS6h DkUdLdX5MXkiX9Bm ghT7BIYxoQVnQObpUFA7 Z69fu5X8ACKlZCVpCCZ4 sYN2nB6xnZwszvtyuHRi dDsgdmVydGljYWwt JCdfT528LAJmbWvcKkZj bWFsZTwvdGQ+PHRkIHN0 hEguPVtzEYWezV3fBHLi O0h9IhAiVxH1NLcv E6AwQJIylwwtNl35wY1z EjQuBhU7VMcbH6GefpE1 HEQojTHfZYkaFVC7Z93a p4J5JJBoWBPfPTX4 yRF4wP5jaJsxxxoseWJp dDsgdmVydGljYWwtYWxp O047AAGauZmkJa39eJHu mUhwzgI1S8SjHdja dHI+IO37CGFtAD27gLNn iQEnl5gdjTr2GkDzLGFn IEW3hVyuJYfbw8RgCARv C94iiZDqz5M8LMHt kNupcZFwClJmfYA0sT5e NBklsfsvq8fgszlgVqrv n4ksyr05kQ34N11zKBrp ZHRoPSIzMCUiIHZh iNuwbu2qrJ3yAy3+PGNv hSH3lYY1tJ8sHeGbUhW4 TRicI999LaKzxXMeNcjd e5coz6qdjZi4ItFt GZUsstSavRkvMBO4i1Wy Iy28J35zIEedZLTwSXUa UPGiBCWgxSetjq7tzX3t Ii8+LQ5xc4tqsr30 lY90jAH+BUJjYWG5pImy AAghTUWxrP1yYTvmOlK6 ZGXsBnRdqW85aIThQGez Ni2dtVtlwVefEV8i SZQowjkom329YxXeo4uy XTXcxUTyAPmoYMR3T40k v2K2ISZxBKVfENQ7zCQ8 qI7iyBlbmreblQAw dDsgdmVydGljYWwtYWxp R881PMFhhQmmAkDtyTHn M5wmwqUXTV5bJnlriLX+ LYTmIWN8bFkwQLnj PQHgqW6sSXTmQ9h4DgHj JrH9PGmjB9OfogD9XARv kULuLKCbiXOJcP4icwqk l6oudmirYmWpLHJp BNx2XKt9ZEYocRafDcZa RVN4VvJ5HBP6lABwzT6l nBocjsykxV7mRwi+RklO OjwvdGQ+PHRkIHN0 nUfoEPyvXSNrwT3zTNNs Z4o2ZjOuKyA3DBqpP4Na zxP2HWEwxBSdCMVnjLKV hB2gqjqaj7oqkoig KoEpNYZtLFx4GBd9OWYb eFwgQxCsPKV0BgX1PGR4 sTKkvJ5vfAzuymfvgX3o Oyc+TVJOOjwvdGQ+ FGMjKRQ2tErjNVesIVAz wF0xSOHsN5k9YxItBmS4 OOjcD0HcgnX2CEHnoQMz BHRblHHOcN9iofdo m7bpmsgwCeBpWWChFYl5 QCc8XTXxxGqnVpXyJJL8 AdP5FTG7aKQwbJ0ggObx sinffG6pNjn+UGF5 SBQ5EF27HD85X8SkWxhl dGFibGU+PHRhYmxlIHdp ZHRoPScxMDAlJyBzdHls XD0tSu7zNCTuNIZx bGxh (more content not included)... Normal [facility] Coding Summary. [id number] Gh0bWw+PGhlYWQ+PE1FV LLhN85iiFFpaD4GN7eEU K7CTXFXPKVRMT9SQQ9bo OB2UJomM8MtoxPo QusicVNmKN13DIy2JVM4 lOqzUKurvR4wbIWzX4i1 CfGbEW80jG34KNpgGGIu HvD2HyYfjovmnCCs L3lcLzVqpTJpRla+PHRh YmxlIHdpZHRoPScxMDAl SfLfyXgzHA7cRj8tIRGt LWNvbGxhcHNlOiBj k3wjAADaODbrRH2qbMzo R9IeaMJ0QAAcy4d9Lj86 dHI+GMTxCCM3kExkGGcg h215VrRlz0rhQCG6 hAAgBCrqZSC2J63fu6H7 THEcMKTsCWE5hOB6mD9a vNewayopV3SdlLBrNuQ3 YWZ6pFQczL3jrJxg getbbL6hTfd+E88NQB7J GOZGDQ8GRjs3W4RlKjyy dHI+DJ78RPMbYH36rHPa kTJpn8tenSf0QlGp LCPjEYE9jBmqPGabf4Pj UVGpY30wkQNzo4C5ABRs kIqnvQGyMkQpeMV1tK1k ACdsqdtkk9tgtdxv Ioqjj6rgwp17sT27U64w CQcfFRGdROI3FDNrNLWs tGcwsg7lnK2rXw0+IDxj r4tnr5greJp5UdLc RUMavdUieFgkIYM7b1Xw En07U7VacJtdv4HeXai3 tw38vSArn2V8uJQ6WDxo DTBcvM3uJWtkDvO8 HUCmXnUbaV00uHXiVPqw Pu9hzYnycFgpSV1kNKCd pjlqSGVhzW1qXXJepHRl hRahSL0wRKHjiqfu t261TwEwDPG9LKJwdYJg M5RhcK4jZtTbQFOfFGUu R2DhiZZrXKewZ601OGmu WxQ1RGOrsyLxA1Mh BHGweZgjCnT6o8E8Ly6Y a0IvqujzLWD1LJngPCW6 TwTuKiFlBuQ3K3PeYgt8 QGGqqDgmQA4pO0To VAMqwpolxphazPB3LAYa RONexS18cJLeECunFu7o i9F5j708LLImOHHaiK61 Sd4niZfpFHInvUPR eX1bdwmfl2shvgkkAfMp RUTkXNe3BHn3PDNoeCgj RxKoBUU0SkS7TRM6eAFv mF4trRvndalboY7u Oyc+U71byQ8pNZP5HNL5 zlkcZCHhxwJsAL78JB44 P3ZqIdbceUHfcBG+PGRp vdGzkUxrKJ4eBlMp o1dcn9EaQXalP8KdUJWh ZInhAgj6GSPfYGR0lDX2 hN0kUYVwWJzze3D9mLC1 I3GhobHwsd1ho5ck VUIsWVntP97gcYNbj8E1 JITviAG4DVIgrPwqKvEv sQ86Pxb+JBNkiRnac9Do Oujnk4uiv3aksCp6 IjMwJSIgdmFsaWduPSJ0 z0OoKq16P82oRGkfKINi AICcLYLjAZSfgRepgn1a oA3eZm4+PGNvbCB3 kHF9jJ8qIXIcNxS8ZJum S567ZjOoyBPrPqdhl2wt u8pqwRq9BlQbQMSgcrRy lIbyKBG9g6CtNe66 U15rBNmuZMVoIPAqWQNg QXWtqKgcfk3ciU6kXz5+ QS1pp1edyk38iL41nVI+ EQAsTDZ9gYwcEYua SIMqhW2rNVtmEuF8DDKu HlAevQ52eVLeAXkwMw4f aVopcPyqWJ0hWGSgylwm b160EtPjh7ulQSXp nCOxPHpbPBH6V21zb2I0 IUPdELPzCLQ4uJA8qO0r bGlnbjogbGVmdDsgdmVy tEuzASwgPLykB200 IHRvcDsnPlBhdGllbnQg KhYlQYi4E3OgZge1LGKk bGhyWC7fuOFkPXelCa0l tRidaQjsXE0vFXWr umgcv144LeCmf9mtEKZa oRWiIGvtRJI5C23js0X3 OXLtNGTiNVX8iCB6bQ5n bGlnbjogbGVmdDsg zeSfaXebDNvzTXajA181 IHRvcDsnPkJpcnRoIERh pQI1RU34TJ49tWSyr6V4 hUR0Z8NwQTPwbvhp uhilzFQ0ZIThLLOpiW66 Lf4fhIyoTf8iULAiZJX0 ZRYwlAYvV4RnrM6wGcTc HDZiZYPzA5MurWXg XCotR907AKdrBsS7GERg oyYrY5TkAKRkfKryHeU4 p4Z7Wj2HW3Y0ZQ05PV44 oGYss3H1sLX0I7Hj YXDkijlbgfccmLE3FVHm HBEsbY84Pg3tqPcfZc4c KFKzCYJ4WZXkaHHaJ1Ke yT7eCcYmPLCaUDMt X5IgjXTnDQohP469TMys KgV7UCOhzoYvR8NwOGJz mUegTwR0n1J1Qw5HRFw4 NJ58HW69nBQfj8O6 oGE3O5TwVCWesntsdgcg cGG7QBQvIPTmnI14Oy4x oLvoCp9wBLWmSUK4WPJx fWVtP8ZgoC3sNzWc HFYlMWKcW4ApwWAuPVmv Q240RQylWwW0IAEatuWa W9PoOVVryCsdRaO6g9S6 Ls3ZBDLvNT08CNE0 iBG8TZ44PZ71J5EgDeef dGFibGU+PHRhYmxlIHdp ZHRoPScxMDAlJyBzdHls GZ2pKu4tBKGsFRLe zGyueAWnZnUmf4gdVZTg ZQpoJH1hsEctQ1AfhIC5 WGWaf9w2Hy63P19tZ5Ej dXA+GYPdjLW9lFE6 xO5eWwOlKpO6DDzdK098 PqDzcDUfZgcab3vix9ki hFa0HrU3PIItdsDfeGjj JLR0w2UeCw24Q09s IHdpZHRoPSIxNSUiIHZh yPedll2woW1vPe3+PGNv hSB1zCH9hA0cYlXeQpB8 IZhiM529AxXqkYAx Cluuk4mnp7cmyLa4JuQi LWRqjyPjjFilTCH7r0Od Il64S6PytJyqh1DaRer3 rb33gDAgm7J6xUS8 L9RpHIJiejnyrPQctOse ZS6zLYPxlgtlPAJhwR3d MCKsP0n1UyMkHaA3QBig T3PvbaD6WMFbvXHl EBhbIWB4E47uv0V0DALo MBJlOUU3hIO1dO6caOub bjogbGVmdDsgdmVydGlj GGjzQTdpW797WDYz sEmiDKXigT9oSFHoeFRh pHvkDG9nNNLcmshfIyyP D3ADYGXFS94AVBQGA1Xd UzwvdGQ+PHRkIHN0 nCdxDUskKRMrsG9yORZb Y6a0BrMoVyK3BZprJ5Zy SEKiwmbwHd68fQ2eRfRi ViL0GWmhN2ZesvZ1 QRFamREpDHkaKES4I40y o5L9BKGpPFOyRSP9qBP3 tP4xyGifpiohtYZwrJpt dmVydGljYWwtYWxp R507GXMiyGvzQrQaPrL7 GvV1Xri2N6NaSuo6WUJj iInsDO7ieYGjQMuwVx0g oSfigTyiAJ4zIFHh grakSEEhdA5mGNIszCQj bSwiUL6mZGJlbafhh310 DnUvKKQ4LOCstKXeU3Nm cG9xIrBfUGPmYKKk O2AbsAZrOMatL334IGan YcJ7YBHgegDaJ8KaGCLu lUssPeR6w6D0Xb95FdSL ZWFyczwvdGQ+PHRk QAZ7iRntHWudULCryY2x QDKzR5m2JfVtCfO4FSag H4BwBADpdojoEm20eJ6b ZjYmKsC2FPwwW3Nf cbT7GTPciTQeAEaaCIH8 A06ze3K0SIPtBRDuRKA0 yFP9bW7tuAavssgprXTm dDsgdmVydGljYWwt ROqoP331ICDtlRfeWeVp bWFsZTwvdGQ+PHRkIHN0 tKcwXPxyJVBnrR9jSGSw O6f1ZcFkPtI1HHkw Q6EpTWNvtdgpMn12hB5u SzPjInN9WCwrM8AbekB5 KSRjjDJiSBsxFMM6A84l i0S8YKXhEAOqIAG4 sON8bB2yzQfjikygpSZp dDsgdmVydGljYWwtYWxp R569UKNfnAawWe37rRUr qGqymrG2B9SqSfdu dHI+VW40DJEgTU20fKXm fTWze7obcAs9FoDlPZJq THE3sKvnCYqgo0DxWFMb I16kaRRwq4M0CDEk dFuykQDvQqCmrPO4vH1x THrahsujo9hyamsxYyky c1cjis03fP40K35pBNjy ZHRoPSIzMCUiIHZh zYbvku0qxF2mVp1+PGNv aVF6tMP3dO8lEfRyGiI7 GOfuP300LbYnnRRiTfeq b6bdu7kciLi1RgWo MNXnewEwsPynKOM3f2Xh Gh65H97hXRlsLNVvAIMq MTTuNNGezAxowr5awW8r Ii8+YL3ho3vfwj86 pK64mYX+XIVfRBK3dYkd GZhjZSOowJ2aCMmiQdC1 BIErCkByeP56cJMdWXxp Ix1dpLafvIqpXL5s JRCnbewbv753CnTul4za QYMxwUPaCUbcWHG8S97i h1O5LKZxIAVzDDA7aHW6 nK8epPtsbmuszBAo dDsgdmVydGljYWwtYWxp U712LTYzgXmzOmAxpJVi R4dcxmFFES7dGsgsrBJ+ OCQnNDD1pMzaRBfg BIEjrI5dNDDoN5x7KnKd OcD9AZttA6IosuN0GPQd zUYbQVMafKGHrU6jtohi f2jqvoxtPvMqMEAd CSg9MNa7OJTqtDopFwHl LLQ4WjG3LEB9tXUlyK2z jMpbnfhhqG4xZds+RklO OjwvdGQ+PHRkIHN0 eYaeADawCIApmV8vYBDg G7s7YfIlFqS9ASaxD7Fl fhM4PPJepXGmTUTayAOI qJ8spbvto0gogbgr ZiPfBAIvALy8OZx8ZUBd iDqkOlWwHYM7QlK9ZZZ1 gFMbdT3chVfyuegviI2b Oyc+TVJOOjwvdGQ+ YHThSCY0dBnrZCurBLZa oM7tUQQxC7b6KjWhPhG7 GOutZ8JpyzK2TWKgdIGs WWHhkPQDjK2fwfug g5rjlkacBrSvOPZoYRc8 QHj1PIRhgQtlJhTtSXJ9 HrN4ZXD3xKQgcZ2ohVoi dufcaZ1yPjz+UGF5 JWA9IS93HZ52J4JsBcif dGFibGU+PHRhYmxlIHdp ZHRoPScxMDAlJyBzdHls XN6aEb1gUJErCTTw bGxh (more content not included)... Normal [facility] PAP [id number] 01-07-2021 Cytology report Cyto stain Doc (Cvx/Vag) Note Invalid Interpretation Code [facility] Comment on above: Result Comment: TEST S RESULT FLAG UNITS REF RANGE LAB Clinician Provided Cytology Information Source.............[employer] Other..............IUD No. of containers..01 ThinPrep Vial DIAGNOSIS: 01 NEGATIVE FOR INTRAEPITHELIAL LESION OR MALIGNANCY. THIS SPECIMEN WAS RESCREENED PART OF OUR CHARGEBACK SPECIALIST PROGRAM. 01 Satisfactory for evaluation. Endocervical component may not be distinguished in cases of atrophy. 01 Nasrin Mcmahan, Client Support Consultant (ASC) 01 Demetria Mendes, Supervisory Client Support Consultant (ASCP) 01 Note 01 The Pap smear is a screening test designed to aid in the detection of premalignant and malignant conditions of the uterine cervix. It is not a diagnostic procedure and should not be used as the sole means of detecting cervical cancer. Both false-positive and false-negative reports do occur. Test Methodology: Note 01 The [place] [employer] Board [employer] Commissioners was unable to read this specimen. Therefore a manual review was performed. FLAG LEGEND: L-Low Normal,H-High Normal,LL-Alert Low,HH-Alert High <-Panic Low,>-Panic High,A-Abnormal,AA-Critical Abnormal Performed at: [address] [place] [address] Keisha Oreilly MD, Performed By: #### 1 [id number] #### [facility] [address] [place] [address] HPV 16+18+31+33+35+39+45+51+ 52+56+58+59+66+68 DNA Probe+sig amp Ql (Cvx) Negative Invalid Interpretation Code Negative [facility] Comment on above: Result Comment: This nucleic acid amplification test detects fourteen high-risk HPV types (16,18,31,33,35,39,45,51,52,56,58,59,66,68) without differentiation. Performed at: [address] [id number] MD Afia Valdes Performed at: =[address] [id number] MD Afia Valdes Performed By: #### 1 [id number] #### [facility] [address] [place] [id number] Coding Summary.on 01-02-2021 Coding Summary. [id number] Gh0bWw+PGhlYWQ+PE1FV LHaX75hyIJejJ8VH3eZN V1QYOTLOOTEBL7CDM6td ED1WWtfQ2CdhzYy PzeyfTAtCJ25AFl0IMP9 dVvgBNjsnS0yuVWmN0a3 MpUsEI35sP17SSuzYMGp GbF5FkUnhkrpqBVr H9biBtTvyCJvVpu+PHRh YmxlIHdpZHRoPScxMDAl TkBzoLhgVF2fNg5eDEWy LWNvbGxhcHNlOiBj y1nkLBKfZJdwMH1anWos N6QxcSO6KUIyc1k5Tb67 dHI+TAYaETG6dFtwPLmq q527HfIdx6buPZX4 jZWeKBtiOIL2V06xt7C5 NMDqWCYrZQD6qZY4bS5h uGfaxqylU9FlqOEvIhA7 NFI9xFUeeE1wjKqc ikunpV2rIku+J18WYF8A VCNCBK4AHkl7H2WcNhmp dHI+QS07ZPDaSU61rULj fLJyr0dmyMh1TuSv TWAfQRU1nAuuGHvap0Mz WOSvJ63dzCNyz0R8MCIq fWtdpVTeNwYxkLA7kT6a YEcqxvvtu6tfgepo Rjyvy7wfgg36cT41T90x VBijHRRnLUL9ETGzMYBh oRtfyt1wcW1eXq3+IDxj c5jgn3ndaSa5PeNx ACMucvAjzMzhMZC0e7Jt Vo65T8WxwYubv7BaLpn4 hb83eDCdw8Z1mPM0JKlo NWQdvG4eXYtwZfZ1 MAHbLaNvzM38zKRnEPce Pk0xtYbqdBnqAJ5gWKTc rwvkWPDtqE5bQDLkjYSe yXkpLM8wRADcgnkx n084SjLjVWM0YXYauWCn H6PiiH3kLqGiHULrOWFn L1QsyLKlCGdxI648DSpx JcT3MUKnlbFrZ1Gc QKFwbRllAuB4j5C0Zu0T e0FxhdkxIWP3WTxdBDP9 FmPpSaKiTkC2F1NfMzm7 IDUdyDdbCD5qA0Vh NPDhgfwzlrfewJD3BHLf FWAxjR56sDVmJAktIx2v i8O4t716DMGlXFRitT08 Dg9ilGhdWGMdzXVQ qK3dsalky8pgxaglWxKs PWWbARy2HSo1MFWofChp RkEbIHM0PbS0RUJ3iDSm cB8guJtfwldydH6g Oyc+R10mfL1aQJA5XGX6 kfuxNZLfvrItQN66VF52 Q0AgUgahqWKxkFE+PGRp uqBlwBfcQO0jOzIn v8fvp9PnNNbtL3TcZSMs OTlpFmb6YYGyNUG2hKA9 xQ5cLODrGXzfp7X0vCO6 D5YongVsoh6nt6zx OFHbSZawZ59wyUFjp1F6 CGByqQR1GOLkaOybGuBq nX45Dai+PEDgxVxay3Bs Rgbsx8slv3tfbCd7 IjMwJSIgdmFsaWduPSJ0 g6DzGu05O65uDCnsXIQl TYExZPRxWNOexPdpuy2v hI3eMc1+PGNvbCB3 dWD4iA0hZXNvWeJ9JYfj K051EnXthZMfRlsbx0tg z7nnhGv9RcPyNAMcqdKo jOwuCYA3n1NuGo03 L53bWZhoEFXfMEUiUFHb RBQlsLxnjg2cyV2cHd4+ WK4gz2guky12aG53mWD+ SYAfQQF9iBdhBJnm AMEvoX1hUKcfLoJ7YNGm OeTyhJ28jYOaUVuaDi1a nFpyxXssGL5wUCOxafse u554VmEcr0khSRXx eGFaLIfuVTL7H32qs8Q9 SGBcMBEaGIZ1qOS0fJ2m bGlnbjogbGVmdDsgdmVy bHvtGXgrDInvF892 IHRvcDsnPlBhdGllbnQg EeJxSMi6H4RuKuy7NYSj fTzcYK5orQQmHPssUa0h wFykrDmqJT9hHMOr dkqbp884KpJex3cdHEDt hDTsNJbuOEE0R34wb5X1 FGFpFDGoFBT0tCQ3dN9v bGlnbjogbGVmdDsg jcOjoWhyAMhnILalZ474 IHRvcDsnPkJpcnRoIERh fVD5IS00AT08bDOsq3N0 eYJ1F2MkPHMypvzu ndtyyEV8HFNnNGZrwS40 Hi8bnUcpCq9uYVPeLUZ7 DDJxeVFvO4SxbC2zUgUw YEMgGBNmV9FctKGh REmtG727ZWbcWpP3MZXz uyQjQ6JlUFDjcFwzRuB6 n4I1Hl3PU0Z4SP79SH98 tJGrc9Q4gRD5U7Gc DFTfqwsltiffqDM7MTBd IJDtsT86Bo0vrEwzVn9w YXJnOKX7OESakKZjY0Aq tW1fMfUsNWKmRRJx O6SceRShEBboO823QBap VcB5FIBmklQtS3EkESFa oMneFdA3q4O5Ao8ELVc8 GK25ZV01qKGnn7B3 oNE7O4EgJGIegqzbupkx lZM8ZTTmLDEhcQ90Ii4j fBtwCv1jXXBaHDY6OZGk bRIpN1YjsP9pTuBb PWVfPPWmH2TbnUYzDJdw E673RRrtPuM9DBCtbrHi L2ZoDKHjyKxzBjH1b3S7 Dw2DVDWfBV70NEW8 zDX5GR26PE13B1UtBpom dGFibGU+PHRhYmxlIHdp ZHRoPScxMDAlJyBzdHls GU3iYu6qTAQxMDJx kZizxMKwAtMem7dlTVDs PUdvLM4suUmuU8DjlPI0 ZGIlv7j9Hj55S49xU5Kz dXA+VTWzcEB0iOR9 yM8aGmBeDlH7VWfgJ280 NaEleSUjEtlsb8jrx7wh zPc2OvW8HDXzndUwxYyy CGT2i2AlGd42A53b IHdpZHRoPSIxNSUiIHZh tQdqtr6slI1pTi1+PGNv jWG1pIK0aE8uLkJxKbU3 XWjhX262KqLioGOj Tcoub1jxl3npsRu3OxZx EMQrccFfeNdrGPP2e2Ja Xb43P7VugQpnq1OlCdi3 ls92wBAzd1M2uZF2 C4XiZWElxlkriCBswTft YG0lFJRectvkNSHtwT8n GIZuO6f9MmDwEvX8JLor J5HisfH3VVXlbLCa SOobKGC8T01ok6S9QJKv BATbMLE3qVF1eX4gdIkv bjogbGVmdDsgdmVydGlj IWfiCOhxO123WGHj oXqkIDQkzY2oKZQjqCQw vNidUV4eQNEkvzvtYzkA P8FONRQYB13WAYXXK3Fr UzwvdGQ+PHRkIHN0 fAfdVEfiYRNyoE9bMZNq Z8j2TjJkGdE8XJrbB6Ct FXPzrzpgYw45jW0kNxEc KlK1BCejK0VwjbN7 DZWceHIrXZszEKD5Y77h c2Y8EJTwFKEwQXF7wQR4 xI2xzYiofbkjiEGtpXbi dmVydGljYWwtYWxp T045OIEmbVudIpOgDkN3 PoP3Yau1O1EsGcb4NTHn kQowQR9cnOWtYLjjLw2w rXvssGrqRT1rYPOd iydnLXEmaO8kIMHmdNTt mBziTT5lVSKtgqkqp494 VxJzRZY5SOPplYUpO0Zj jJ6gTaHvSJUsNSLs L9JthWXoBVirZ137ACyu YxL8SGCwbuRqR8ThDSYz tAnrCgT2c3G8Fb51MkEQ ZWFyczwvdGQ+PHRk UWQ2tQhrCKogEVMenC9j BAMgY8n8VaZvHwF9GKla S9BqFKKmuiotHx63xF3f JgPdQiC1WNbmK5Zh apC8LOBbxSByPMcdKNA4 Y67pe6G7RJPtOIJqFWV4 uFH4oJ3owXmimnomtYOn dDsgdmVydGljYWwt VMrlI417VGUnePunZrLo bWFsZTwvdGQ+PHRkIHN0 iXblOMomEWCwhB8rNPTa Q0m6XpTrUjV0KGhv L3CjBGPuvrurYp21eX7k RkMdBpI6CDrbX9SnqaR6 KRWeaSVfWBpnEER3K55c r7M9OZMcVSZeQRF2 wOH1fZ1guDtiizpnkNJq dDsgdmVydGljYWwtYWxp O338JBUsfBfrQsmrOzWI ms5kTU1pDewrgUH+ RR65iw92R1MeOpprOzv8 ZZQyONL4vBZ0zW5uHRRx GOrbc3U2mKQ4J8SrbtJj nr0cd1sqOZKmPUjx Q00ffXChx0P9CJXluAI5 GQYfmOtxNdMzvD89Idr+ XTZyhFipa0EyNrgbk9iw n7uqnLr3AeMaSWEe gbQdoUjkDKK1c4FmUa76 E18hOAkgVUUkFNNeMAQc IFSubNszzt5zrF2rPq8+ XZGbuOC2mHG3aL4n XvVpLmL8AOnmG556DeNx xUYaAixll4xyd6txtYb1 IjIwJSIgdmFsaWduPSJ0 l0XcUa81S9OnfBhg q2YxFuh2uk68rAMcr2S6 gOP6X2UrAKHsdqypyEBz pKxjJC9aMCYhgxcpQYMo sJ8eQEIcT3n0ErDa SlE1PSubL0DmbzI2RVZb eADyQCPysZFOcJ2mzybp v8wujeckAsZqCDPrVHs0 QOi4HJIqlRvvJcRn FHS4DdO6ZYR1fWVrzV4p mQuvumlaaI0pUxl+UGh5 k5soqMYyAY2bdTM6FI00 FR15tVHgs6W0hON3 W2EkEPRxetbinxxisJO0 MDCpNXKxmR75Zb8moIix Qd3nSCUyPMY2VPXfyGJr N6ZxbM2qIuSbEQOk DYVdS1XadNYqRVeeC606 IGmuDvH9RZJxulZbK3Bv ETJcpCcrTuM8c6V0Sv6S JA38FM38DK84yTBl z8Y9fFJ9J3RbPHPbxsjx hvemhEJ4DYQnPWJtiU84 Dj8yoDjmAi5jUZPtFCC0 XKQjtIQfW5DjcN1m TtBjBDKlXDPyL5SzcWJs DCjvO643WBcpStV2DWBf ebAhB9SoFTXtkAzbLrA7 g9M1Ci1OEd08DT65 RC17wFHly1M8sLM2P2Ve NNOsoznbqsobxJY4LDZw BPHetG03Dy5ibPcdTt3r SWXrVBD6SAJqmIQf N5HulP4xZqVwHSHnEBXy X4UwcHUiOLjdH515QLkp UlX5SATeexGbS6TpQQBk pGdtKsF7w4F9Qo3B SIxxbeq5G7EyBphtbIB+ ZF53UHBfAL45fVVbdTFg q2auuMb2FqByHYGlELS0 lVilLVhfc3VsNNTv Y29s (more content not included)... Normal [facility] Estradiolon 01-02-2021 E2 [Mass/Vol] 20.5 pg/mL Invalid Interpretation Code [facility] Comment on above: Result Comment: Adul t Female: Follicular phase 12.5 - 166.0 Ovulation phase 85.8 - 498.0 Luteal phase 43.8 - 211.0 Postmenopausal <6.0 - 54.7 1st trimester 215.0 - >4300.0 Michelle ECLIA methodology Performed at: [facility] [id number] PhD Ce Castro Performed By: #### 2 [id number] #### [facility] [address] [place] [address] FSHon 01-02-2021 Follitropin Qn 98.6 m[IU]/mL Invalid Interpretation Code [facility] Comment on above: Result Comment: Adul t Female: Follicular phase 3.5 - 12.5 Ovulation phase 4.7 - 21.5 Luteal phase 1.7 - 7.7 Postmenopausal 25.8 - 134.8 Performed at: [facility] [address] [id number] PhD Ce Castro Performed By: #### 2 [id number] #### [facility] [address] [place] [address] Ambulatory Clinical Summaryo n 12-31-2020 Ambulatory Clinical Summary {[id number]}CD:[id number] Normal [facility] Consent for Treatmenton 12-13 Consent for Treatment [id number] #1.00CD:127 Normal [facility] Gynecology Office/Clinic Not vanessa 12-31-2020 Gynecology Office/Clinic Note Chief Complaint Annual, Obstetric History History (0,0,0,2) # 1 Baby 1 Outcome Date: 12/13/2008 Outcome: Live Outcome or Result: Vaginal Gender: Female Gest Age: Fullterm Wt: -- Hospital: [facility]: -- Child's Name: -- Baby's Father: -- # 2 Baby 1 Outcome Date: 12/13/2013 Outcome: Live Outcome or Result: Vaginal Gender: Female Gest Age: Fullterm Wt: -- Hospital: -- [facility]: -- Child's Name: -- Baby's Father: -- HPI Staff 55 Years year old patient here for annual exam. Last pap .12-08-2019 Last mammogram 04-20-2020. Last colonoscopy 2017 or 2018. Method of contraception Mirena 10-16-2015 . History of Present Illness Agree with above staff HPI. Pt presents for annual exam today. She is requesting a pap as insurance will pay for it. She knows she is not due, but is requesting. Mirena October 2020. No periods or vaginal bleeding. She sometimes has hot flashes or night sweats. States she had uterine ablation before her IUD. Denies breast problems. Review of Systems ROS ? Provider Constitutional: No fever, No chills, No sweats, No weakness. No Weight change; No fatigue. Skin: No rash, No lesions. ENMT: No ear pain, No sore throat, No congestion. Respiratory: No shortness of breath, No cough, No orthopnea, No wheezing. Cardiovascular: No chest pain, No palpitations, No peripheral edema. Gastrointestinal: No nausea, No vomiting, No diarrhea, No GI bleeding. Genitourinary: No dysuria, No hematuria, No discharge, No pain. Gynecology: No abnormal vaginal discharge, No vaginal itching/burning, No vaginal dryness, No painful periods, No abnormal bleeding, No pelvic pain, No painful intercourse, No hot flashes Breast: No breast pain, No skin changes, No masses/lumps, No nipple discharge. Musculoskeletal: No back pain, No trauma. Neurological: No headache, No dizziness, No numbness, No weakness. Psychiatric: No sleeping problems, No irritability, No mood swings/depression. Heme/Lymph: No bleeding tendency, No bruising tendency, No petechiae, No swollen. Physical Exam Vitals & Measurements BP: 120/78 HT: 170.5 cm HT: 170.5 cm WT: 88.5 kg WT: 88.5 kg BMI: 30.44 General Exam: Constitutional: alert, no acute distress, well hydrated, well developed, well nourished. Skin: normal color, no rashes, no lesions, no unusual bruising. Head: atraumatic, normocephalic. Eyes: EOM intact, no nystagmus, no icterus. Ears: no external deformities, gross hearing intact. Breasts: skin/areolae normal, no masses, no nipple discharge, no erythema/warmth/tend erness, axillae normal. Respiratory: no respiratory distress. Abdomen: nondistended, nontender, no guarding, no masses. Spine: normal mobility, no deformities. Extremities: no deformities, no clubbing, no cyanosis, no edema. Neurol: normal, cranial nn II-XII grossly intact, sensation intact, motor intact, station & gait normal. Psych: oriented to all spheres, affect and mood appropriate, normal interaction, good eye contact. Pelvic Exam: Vulva: normal appearance, normal hair distribution, no lesions or masses. Urethra: normal, no masses, non-tender, no discharge. Bladder: normal, non-tender, non-distended. Vagina: normal, rugated, physiologic discharge, no lesions, no masses, adequate pelvic support. Cervix: normal, midposition, no motion tenderness, no lesions. IUD strings noted in cervical os. Strings grasped, IUD removed without difficulty. IUD device intact. Pt tolerated well. Uterus: smooth, mobile, non-tender, adequate support. Adnexa: normal, no masses, mobile, nontender. Assessment/Plan 1. 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 Due 2024. Follow up in 1 year or with problems. Ordered: Est Preventative 40 to 64 years [address] PAP w/ HPV and Genotype rflx 2. Screening mammogram, encounter for (Z12.31: Encounter for screening mammogram for malignant neoplasm of breast) Recommend monthly self breast exams. Schedule mammogram in April. Ordered: Est Preventative 40 to 64 years [address] [place] Mamm Screen w/CAD if perf and 3D Janak 3. Encounter for IUD removal (Z30.432: Encounter for removal of intrauterine contraceptive device) Discussed IUD is now . IUD replacement vs removal alone. Pt is concerned over . Plan to remove and pt wants labs checked to see if she is in fact menopausal. Ordered: Removal IUD 71880 4. Perimenopause (N95.1: Menopausal and female climacteric states) Ordered: Est Preventative 40 to 64 years [address] Estradiol Level FSH Level Follow-up With When Contact Information Yuni MUÑOZ In [address] [place] [address]- Additional Instructions: Problem List/Past Medical History Ongoing No qualifying data Historical Abnormal (more content not included)... Normal [facility] Comment on above: Result Comment: Elec tronically Signed By: Yuni MUÑOZ\.br\Date and Time Signed: 12/31/20 17:00 EDT PAP [id number] 12-31-2020 [employer] BROOM[employer]ONE Normal [facility] Comment on above: Performed By: #### 1 [id number] #### [facility] [address] [place] [address] Gynecological Body Site CERVIX Normal [facility] Comment on above: Performed By: #### 1 [id number] #### [facility] [address] [place] [address] Other Patient Information IUD Normal [facility] Comment on above: Performed By: #### 1 [id number] #### [facility] [address] [place] [address] Previous Cytology Negative Normal [facility] Comment on above: Performed By: #### 1 [id number] #### [facility] [address] [place] [address] Patient Educationon 01-01-20 Patient Education Health Recommendations for Postmenopausal Women Respected and ongoing research has looked at the most common causes of , disability, and poor quality of life in postmenopausal women. The causes include heart disease, diseases of blood vessels, diabetes, depression, cancer, and bone loss (osteoporosis ). Many things can be done to help lower the chances of developing these and other common problems: CARDIOVASCULAR DISEASE Heart Disease: A heart attack is a medical emergency. Know the signs and symptoms of a heart attack. Below are things women can do to reduce their risk for heart disease. ? Do not smoke. If you smoke, quit. ? Aim for a healthy weight. Being overweight causes many preventable deaths. Eat a healthy and balanced diet and drink an adequate amount of liquids. ? Get moving. Make a commitment to be more physically active. Aim for 30 minutes of activity on most, if not all days of the week. ? Eat for heart health. Choose a diet that is low in saturated fat and cholesterol and eliminate trans fat. Include whole grains, vegetables, and fruits. Read and understand the labels on food containers before buying. ? Know your numbers. Ask your caregiver to check your blood pressure, cholesterol (total, HDL, LDL, triglycerides) and blood glucose. Work with your caregiver on improving your entire clinical picture. ? High blood pressure. Limit or stop your table salt intake (try salt substitute and food seasonings). Avoid salty foods and drinks. Read labels on food containers before buying. Eating well and exercising can help control high blood pressure. STROKE Stroke is a medical emergency. Stroke may be the result of a blood clot in a blood vessel in the brain or by a brain hemorrhage (bleeding ). Know the signs and symptoms of a stroke. To lower the risk of developing a stroke: ? Avoid fatty foods. ? Quit smoking. ? Control your diabetes, blood pressure, and irregular heart rate. THROMBOPHLEBITIS (BLOOD CLOT) OF THE LEG Becoming overweight and leading a stationary lifestyle may also contribute to developing blood clots. Controlling your diet and exercising will help lower the risk of developing blood clots. CANCER SCREENING ? Breast Cancer: Take steps to reduce your risk of breast cancer. ? You should practice breast self-awareness. This means understanding the normal appearance and feel of your breasts and should include breast self-examination. Any changes detected, no matter how small, should be reported to your caregiver. ? After age 40, you should have a clinical breast exam (CBE) every year. ? Starting at age 40, you should consider having a mammogram (breast X-ray ) every year. ? If you have a family history of breast cancer, talk to your caregiver about genetic screening. ? If you are at high risk for breast cancer, talk to your caregiver about having an MRI and a mammogram every year. ? Intestinal or Stomach Cancer: Tests to consider are a rectal exam, fecal occult blood, sigmoidoscopy, and colonoscopy. Women who are high risk may need to be screened at an earlier age and more often. ? Cervical Cancer: ? Beginning at age 30, you should have a Pap test every 3 years as long as the past 3 Pap tests have been normal. ? If you have had past treatment for cervical cancer or a condition that could lead to cancer, you need Pap tests and screening for cancer for at least 20 years after your treatment. ? If you had a hysterectomy for a problem that was not cancer or a condition that could lead to cancer, then you no longer need Pap tests. ? If you are between ages 65 and 70, and you have had normal Pap tests going back 10 years, you no longer need Pap tests. ? If Pap tests have been discontinued, risk factors (such as a new sexual partner) need to be reassessed to determine if screening should be resumed. ? Some medical problems can increase the chance of getting cervical cancer. In these cases, your caregiver may recommend more frequent screening and Pap tests. ? Uterine Cancer: If you have vaginal bleeding after reaching menopause, you should notify your caregiver. ? Ovarian cancer: Other than yearly pelvic exams, there are no reliable tests available to screen for ovarian cancer at this time except for yearly pelvic exams. ? Lung Cancer: Yearly chest X-rays can detect lung cancer and should be done on high risk women, such as cigarette smokers and women with chronic lung disease (emphysema ). ? Skin Cancer: A complete body skin exam should be done at your yearly examination. Avoid overexposure to the sun and ultraviolet light lamps. Use a strong sun block cream when in the sun. All of these things are important in lowering the risk of skin cancer. MENOPAUSE Menopause Symptoms: Hormone therapy products are effective for treating symptoms associated with menopause: ? Moderate to severe hot flashes. ? Night sweats. ? Mood swings. ? Headaches. ? Tiredness. ? Loss of sex drive. ? Insomnia. ? Other symptoms. Horm (more content not included)... Normal [facility] Ambulatory Clinical Summaryo n 08-22-2020 Ambulatory Clinical Summary {[id number]}CD:[id number] [facility] Outside Mammographyon 2019 Outside Mammography [id number]# 1.00CD:127 [facility] Gynecology Office/Clinic Not vanessa 12-03-2018 Gynecology Office/Clinic Note Chief Complaint Here for Annual Last pap 11/24/17 negative, pt does want a pap. States her insurance covers it yearly Obstetric History History (0,0,0,2) # 1 Baby 1 Outcome Date: 12/13/2008 Outcome: Live Outcome or Result: Vaginal Gender: Female Gest Age: Fullterm Wt: -- Hospital: [facility]: -- Child's Name: -- Baby's Father: -- # 2 Baby 1 Outcome Date: 12/13/2013 Outcome: Live Outcome or Result: Vaginal Gender: Female Gest Age: Fullterm Wt: -- Hospital: [facility] Labor: -- Child's Name: -- Baby's Father: -- History of Present Illness Patient is 53 Years old here for annual exam. 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 Review of Systems PHQ Score Initial Depression Screen Score: 0 ROS ? Provider Constitutional: No fever, No chills, Nos weats, No weakness.No Weight change;No fatigue. Skin:No rash,No lesions. Issues with skin, has frequent rashes, sees PCP Respiratory:No shortness of breath,No cough Cardiovascular:No chest pain,No palpitations,No peripheral edema. Gastrointestinal:No nausea,No vomiting,No diarrhea,No GI bleeding. Genitourinary:No dysuria,No hematuria,No discharge,No pain. Gynecology:No abnormal vaginal discharge,No vaginal itching/burning,No vaginal dryness,No painful periods,Yes abnormal bleeding,No pelvic pain,No painful intercourse,No hair loss/growth,No hot flashes, sexually active, Mirena IUD for AUB, due to remove in 2021 Breast:No breast pain,No skin changes,No masses/lumps,No nipple discharge. Musculoskeletal:No back pain,No trauma. Neurological:No headache,No dizziness,No numbness,No weakness. Psychiatric:No sleeping problems,No irritability,No mood swings/depression. Heme/Lymph:No bleeding tendency,No bruising tendency,No petechiae,No swollen lymph nodes Physical Exam Vitals & Measurements HR: 76(Peripheral) RR: 20 BP: 122/82 HT: 170.5 cm WT: 80.0 kg BMI: 27.52 General Exam: Constitutional: alert, no acute distress, well hydrated, well developed, well nourished. Skin: normal color, rash noted to B/L arms (seeing PCP), no lesions, no unusual bruising. Head: atraumatic, normocephalic. Eyes: EOM intact, no nystagmus, no icterus. Ears: no external deformities, gross hearing intact. Mouth: normal dentition Neck: supple, no adenopathy, no masses, thyroid normal size, no thyroid tenderness or nodules. Breasts: skin/areolae normal, no masses, no nipple discharge, no erythema/warmth/tend erness, axillae normal. Cardiovascular: RRR, no murmurs, no gallops, no edema. Respiratory: no respiratory distress. Abdomen: nondistended, nontender, no guarding, no masses. Spine: normal mobility, no deformities. Extremities: no deformities, no clubbing, no cyanosis, no edema. Neurol: normal, cranial nn II-XII grossly intact, sensation intact, motor intact, station & gait normal. Psych: oriented to all spheres, affect and mood appropriate, normal interaction, good eye contact. Pelvic Exam: Vulva: normal appearance, normal hair distribution, no lesions or masses. Urethra: normal, no masses, non-tender, no discharge. Bladder: normal, non-tender, non-distended. Vagina: normal, rugated, physiologic discharge, no lesions, no masses, adequate pelvic support. Cervix: normal, midposition, no motion tenderness, no lesions. Os noted, IUD strings noted, pap obtained and sent Uterus: smooth, mobile, non-tender, adequate support, anteverted. Adnexa: normal, no masses, mobile, nontender. Assessment/Plan Breast screening(Z12.31: Breast screening) Will schedule per [facility] at [facility] Discussed self breast exams Ordered: MA Mamm Screen w/CAD if performed bilat Visit for routine popcorn vendor exam(Z01.419: Visit for routine popcorn vendor exam) RTC annually or PRN Will notify of results Call with questions or concerns Discussed self breast exams Ordered: Initial Comp Preventive Med 40 to 64 [place] [address] PAP [id number] w/HPV HR Follow-up With When Contact Information Eli SCHNEIDER CNP In 1 year [email or web address] Additional Instructions: Problem List/Past Medical History Ongoing Abnormal breast finding Abnormal mammogram of left breast IUD (intrauterine device) in place Historical Procedure/Surgical History Mammography and biopsy of left breast (12/19/2016), left shoulder surgery (05/15/2014), LEEP (07/02/2007), Cholecystectomy. Medications albuterol 0.083% Inh Gloria 3 mL, 2.5 mg= 3 mL, Inhalation, q4hr Dulera 100 mcg-5 mcg/inh inhalation aerosol, 2 puff(s), Inhalation, q12hr Flonase, 50 microgram, Nasal, Daily Mirena, IntraUteral, Once Synthroid, See Instructions Allergies Cats (unknown) Social History Alcohol Current, Beer, 1-2 times per month, Alcohol use interferes with work or home: No. Drinks more than intended: No. Others hurt by drinking: No., 12/03/2018 Tobacco Never (less than 100 in lifetime) Tobacco Use:. Never Smokeless Tobacco Use:., 12/03/2018 Never (less than 100 in lifetime) Tobacco Use:. Never Smokeless Tobacco Use:., 12/03/2018 Family History Diabetes mellitus type 2: Mother. Hypertension: Mother. Normal [facility] Comment on above: Result Comment: Elec tronically Signed By: Eli SCHNEIDER CNP\.joaquina\Date and Time Signed: 12/03/18 09:55 EDT Vital Signs Date Time Vital Sign Value Performing Clinician Edward branch 04-09-2022 01:45-0400 Body height 172.72 cm DO [facility] 04-09-2022 01:45-0400 Body temperature 97.2 [degF] DO [facility] 04-09-2022 01:45-0400 Body weight 81.64 kg DO [facility] 04-09-2022 01:45-0400 Diastolic blood pressure 111 mm[Hg] DO [facility] 04-09-2022 01:45-0400 Heart rate 75 /min DO [facility] 04-09-2022 01:45-0400 Respiratory rate 16 /min DO [facility] 04-09-2022 01:45-0400 SaO2% (BldA) [Mass fraction] 95 % DO [facility] 04-09-2022 01:45-0400 Systolic blood pressure 178 mm[Hg] DO [facility] Encounters Encounter Date Encounter Type Care Provider Facility Start: 04-18-2024 End: 04-18-2024 Mellissa Gutierrez MD Work Phone: [facility] Start: 04-18-2024 End: 04-18-2024 Bamboo flowsheet Nancy Gutierrez MD Work Phone: [facility] Start: 04-18-2024 End: 04-18-2024 Office outpatient visit 15 minutes Nancy Gutierrez MD Work Phone: [facility] Comment on above: Other atopic dermati tis (Primary Dx); Milia; Lentigines; Seborrheic keratosis; Melanocytic nevus of trunk Start: 04-18-2024 End: 04-18-2024 ambulatory NANCY A PETITTI Not Available Start: 11-11-2023 End: 11-11-2023 ambulatory YUNI SANCHEZ Not Available Start: 10-19-2023 End: 10-19-2023 ambulatory NANCY A PETITTI Not Available Start: 09-17-2023 End: 09-17-2023 ambulatory NANCY A PETITTI Not Available Start: 11-27-2022 End: 11-30-2022 ambulatory STARR IGNACIO [facility] Start: 11-27-2022 End: 11-29-2022 Subsequent hospital visit by physician Pedro [address] Room 1 [facility] Imaging CT Scan Comment on above: Lower abdominal pain ; Acute diverticulitis Start: 08-21-2022 ambulatory LOUISA [facility] Start: 04-09-2022 End: 04-09-2022 Emergency department patient visit Palak Paz Facility:[facility] Start: 04-09-2022 End: 04-09-2022 Emergency department patient visit DO Palak Paz [facility] Start: 02-05-2022 End: 02-06-2022 ambulatory YUNI SANCHEZ Facility:[facility] Start: 08-20-2021 End: 08-22-2021 Subsequent hospital visit by physician Pedro [address] Room 1 [facility] Imaging CT Scan Comment on above: Generalized abdomina l pain Start: 05-06-2021 End: 05-07-2021 ambulatory YUNI SANCHEZ Facility:[facility] Start: 01-30-2021 End: 02-01-2021 Subsequent hospital visit by physician Mojica Mri Room 1 [facility] MRI Comment on above: Abnormal ultrasound; Soft tissue swelling of chest wall Start: 01-07-2021 End: 01-09-2021 Subsequent hospital visit by physician Yunior Ultrasound 1 [facility] Ultrasound Comment on above: Localized swelling o f chest wall Procedures Date Procedure Procedure Detail Performing Clinician Start: 11-27-2022 Ct abdomen & pelvis w/contrast material Starrnarda Ignacio SIEBEL CRM DEVELOPER - DOCK WORKER Work Phone: Start: 08-20-2021 Ct abdomen & pelvis w/contrast material Sandiabilio Pappas DO Work Phone: Start: 01-30-2021 Mri chest w/contrast material Louisa Moses SIEBEL CRM DEVELOPER - DOCK WORKER Work Phone: Start: 01-07-2021 Microscopic observat ion [Identifier] in Cervix by Cyto stain [place] [id number] Start: 05-25-2017 Colonoscopy [place] [id number] Plan of Treatment Date Care Activity Detail Author Start: 12-12-2028 DTaP/Tdap/Td vaccine (3 - Td or Tdap) DTaP/Tdap/Td vaccine (3 - Td or Tdap) [facility] Start: 09-09-2027 Lipid panel Lipids [facility] Start: 05-25-2027 Screening for malign ant neoplasm of colon [facility] Start: 02-04-2026 Lipid panel Lipid screen [facility] Start: 06-18-2025 Lipid panel Lipid screen [facility] Work Phone: Start: 04-26-2025 End: 04-26-2025 Patient encounter procedure 04/26/2025 9:20 AM EST Office Visit [facility] [address] [place] [address] Nancy Gutierrez MD [address] [place] [address] [facility] Start: 11-23-2024 End: 11-23-2024 Patient encounter procedure 11/23/2024 8:00 AM EDT Office Visit [facility] [address] [address] Yuni Sanchez, COMMUNICATIONS ATTENDANT [address] [place] [address] [facility] Start: 04-18-2024 End: 04-18-2024 Patient encounter procedure 04/18/2024 11:35 AM EST Office Visit [facility] [address] [place] [id number] Nancy Gutierrez MD [address] [place] [address] Arrived [facility] Comment on above: Arrived Start: 01-08-2024 Screening for malign ant neoplasm of cervix [facility] Start: 08-22-2023 Depression Screen Depression Screen [facility] Start: 05-06-2023 Screening for malign ant neoplasm of breast Breast cancer screen [facility] Start: 01-13-2023 Influenza vaccination Flu vacc ine (Season Ended) [facility] Start: 04-20-2022 Screening for malign ant neoplasm of breast Breast cancer screen [facility] Phone: Start: 02-04-2022 Hemoglobin A1c measurement A1C test (Diabetic or Prediabetic) [facility] Start: 09-25-2021 Depression Screen Depression Screen [facility] Start: 02-13-2021 Influenza vaccination Flu vaccine (# 1) [facility] Start: 2017 Shingles Vaccine (1 of 2) Shingles Vaccine (1 of 2) [facility] Start: 2012 Screening for malign ant neoplasm of colon [facility] Start: 2007 Diabetes screen Diabetes screen [employer] Phone: Start: 1997 Screening for malign ant neoplasm of cervix HPV (without or with Pap) [facility] Start: 1985 Hepatitis C screening Hepatitis C sc reen [facility] Start: 1982 [facility] screening [facility] Start: 1979 COVID-19 Vaccine (1) COVID-19 Vaccin e (1) [facility] Phone: Start: 1972 COVID-19 Vaccine (1) COVID-19 Vaccin e (1) [facility] Start: 1967 COVID-19 Vaccine (#1) COVID-19 Vacci ne (#1) [facility] Start: 1967 Hepatitis C screening Hepatitis C sc [facility] Patient referral [facility] Work Phone: End: 01-07-2021 US SOFT TISSUE LIMITED AREA US SOFT TISSUE LIMITED AREA Imaging Routine Localized swelling of chest wall 1 Occurrences starting 01/07/2021 until 01/07/2021 [facility] Phone: Comment on above: 1 Occurrences starti ng 01/07/2021 until 01/07/2021 US SOFT TISSUE LIMIT ED AREA US SOFT TISSUE LIMITED AREA Imaging Routine Localized swelling of chest wall 01/07/2021 6:44 PM EDT [email or web address] Phone: Immunizations Immunization Date Immunization Notes Care Provider Fa tobias 12-12-2018 tetanus and diphther ia toxoids, adsorbed, preservative free, for adult use (2 Lf of tetanus toxoid and 2 Lf of diphtheria toxoid) Starr 1 [facility] Phone: 11-29-2018 pneumococcal polysac charide vaccine, 23 valent Starr 1 [facility] [employer] Payers Date Payer Category Payer Private Health Insurance [employer] [id number] 2022 Self-pay [id number] 1965 Unknown [id number] 1967 Unknown [id number] 1967 Unknown [id number] 1967 Unknown [id number] .[id number] 1967 Unknown [id number] .[id number] 1967 Unknown [id number] [id number] .[id number] 1967 Unknown [id number] .[id number] 1967 Unknown [id number] .[id number] 1959 Unknown [id number] Private Health Insurance [employer] [facility] [place] [id number] Unknown [id number] Social History Date Type Detail Facility Start: 12-26-2020 End: 08-21-2022 Tobacco smoking status [facility] Former smoker [facility] Phone: Start: 11-08-1996 End: 10-11-1999 History of tobacco use Current smoker [facility] Start: 11-08-1996 End: 10-11-1999 History of tobacco use Cigarette Smoker [facility] Start: 12-26-2020 End: 04-18-2024 Cigarettes smoked current (pack per day) - Reported [facility] Phone: Start: 12-26-2020 End: 09-17-2023 Tobacco use and exposure Never used [facility] Start: 12-26-2020 End: 11-13-2022 Alcohol intake Current drinker of alcohol (finding) [facility] Phone: Start: 09-25-2020 End: 08-21-2022 History SDOH Alcohol Frequency 2 [facility] Phone: Start: 09-25-2020 End: 08-21-2022 History SDOH Alcohol Std Drinks 1 [facility] Phone: Start: 09-25-2020 End: 08-21-2022 History SDOH Financial 5 [facility] Phone: Start: 1965 Sex Assigned At Not on file [facility] Phone: Exposure to SARS-CoV -2 (event) Not sure [facility] Start: 04-09-2022 End: 09-17-2023 Tobacco smoking status NHIS Never smoked tobacco (finding) [facility] Start: 1965 Sex Assigned At Female [facility] Start: 11-11-2023 End: 04-18-2024 Alcoholic beverage intake Lifetime non-drinker (finding) [facility] Start: 11-11-2023 End: 04-18-2024 Alcohol Use Disorder Identification Test - Consumption [AUDIT-C] [facility] How often to you hav e a drink containing alcohol? Never [facility] How many standard dr inks containing alcohol do you have on a typical day? Patient does not drink [facility] History of Present illness Narrative 04-18-2024 Nancy Gutierrez MD - 04/18/2024 11:35 AM EST Note Date & Type Note Facility 04-18-2024 History of Presen t illness Narrative Skin Check Location: Patient requests a full body skin examination Dermatologic history: no history of skin cancer, no history of atypical moles, no family history of melanoma Last visit: 6 months ago Established patient Follow up Diagnosis: Atopic Dermatitis Location: palms of hands Last visit: 6 months ago Status: clear today Treatments tried and failed: Eucrisa ointment, cerave healing ointment, clobetasol, hydrocortisone Current treatment: Opzelura 1.5% cream All pertinent medical history, medications, and allergies were reviewed. General Exam: alert, oriented to person, place, and time, normal affect, well appearing Unaccompanied Scalp, Examined , exam limited by hair Right leg Examined Head, Face Examined Left leg Examined Neck Examined Right foot Examined Chest Examined Left foot Examined Back Examined Buttocks Examined Abdomen Examined Digits,nails: Examined Right arm Examined Patient wearing nail malay, Denies dark streaks under finger nails, Denies dark streaks on toenails Left arm Examined Lymphatics: Not examined Hands Examined 1. Seborrheic keratosis Stuck on verrucous, iniguez-brown papules and plaques. Patient was counseled regarding these benign growths. Removal is normally not necessary, but they may be removed if they are symptomatic or for cosmetic reasons. 2. Other atopic dermatitis Left Mid Palm Clear today with treatment. IGA 0 BSA 0 Discussed that atopic dermatitis is a chronic condition that can be controlled but not cured. Continue Opzelura cream bid prn when flared, hold if smooth/asymptomatic. Encouraged daily moisturizing and gentle cleansers to prevent flares. Notify office if flaring despite treatment. Related Medications Ruxolitinib Phosphate (Opzelura) 1.5 % cream Apply to affected areas, once a day when flared, 30 day supply 3. Milia Head - Anterior (Face) Small white or yellow papules. Reassure, benign. Discussed milia may self resolve or they can be removed for a cosmetic fee. 4. Lentigines Scattered iniguez macules in sun-exposed areas. The patient was informed that lentigines are benign pigmented lesions that occur on sun-exposed and sun-damaged skin. No treatment is necessary. Recommended regular use of broad spectrum sunscreen SPF 30 or higher 5. Melanocytic nevus of trunk Scattered benign appearing, regular brown to light brown melanocytic papules and macules with similar morphology Counseled regarding these benign growths. Rarely, a nevus can develop into malignant melanoma, so any changing nevi should be promptly re-evaluated. Next Visit: 1 year documented in this encounter [facility] Evaluation note Note Date & Type Note Facility Evaluation note Diagnosis Localized swelling of chest wall documented in this encounter [facility] Phone: Evaluation note Note Date & Type Note Facility Evaluation note Diagnosis Abnormal ultrasound Other nonspecific (abnormal) findings on radiological and other examinations of body structure Soft tissue swelling of chest wall Swelling, mass, or lump in chest documented in this encounter [facility] Phone: Evaluation note Note Date & Type Note Facility Evaluation note Diagnosis Generalized abdominal pain Abdominal pain, generalized documented in this encounter [facility] Work Phone: Evaluation note Note Date & Type Note Facility Evaluation note No assessment information availa [facility] Work Phone: Evaluation note Note Date & Type Note Facility Evaluation note Diagnosis Lower abdominal pain Abdominal pain, other specified site Acute diverticulitis documented in this encounter [facility] [employer] Evaluation note Note Date & Type Note Facility Evaluation note Diagnosis Other atopic dermatitis- Primary Milia Sebaceous cyst Lentigines Seborrheic keratosis Melanocytic nevus of trunk Benign neoplasm of skin of trunk, except scrotum documented in this encounter [facility] Summary Purpose Family History No Family History Records FoundNo Family History Records FoundNo Family History Records FoundNo Family History Records FoundNo Family History Records FoundNo Family History Records FoundNo Family History Records Found Advance Directives No Advanced Directives Records Found Advance Directive Response Recorded Date/ Time Advance Directives No April 2:18pm Reason for Referral Status Reason Specialty Diagnoses / Procedures Referred By Contact Referred To Contact Pending Review Radiology Diagnoses Localized swelling of chest wall Procedures US SOFT TISSUE LIMITED AREA Louisa Moses APRN - DOCK WORKER [address] [place] [address] Status Reason Specialty Diagnoses / Procedures Referre d By Contact Referred To Contact Closed Radiology Diagnoses Abnormal ultrasound Soft tissue swelling of chest wall Procedures MRI CHEST W CONTRAST Louisa Moses APRN - DOCK WORKER [address] [place] [address] Specialty Diagnoses / Procedures Referred By Contac t Referred To Contact Radiology Diagnoses Generalized abdominal pain Procedures CT ABDOMEN PELVIS W IV CONTRAST Additional Contrast? Radiologist Recommendation Sandi Pappas DO [address] [place] [address] Referral ID Status Reason Start Date Expiration Date Visits Re quested Visits Authorized Denied 08/20/2021 08/20/2022 1 0 Chief Complaint and Reason for Visit Chief Complaint Eye pain Additional Source Comments INFORMATION SOURCE (unrecogn ized section and content) DATE CREATED AUTHOR 12/03/2018 [facility] DATE CREATED AUTHOR AUTHOR'S ORGANIZ ATION 01/08/2021 [facility] DATE CREATED AUTHOR AUTHOR'S ORGANIZ ATION 02/09/2022 [facility] DATE CREATED AUTHOR AUTHOR'S ORGANIZ ATION 04/23/2022 [facility] DATE CREATED AUTHOR AUTHOR'S ORGANIZ ATION 11/29/2022 [facility] DATE CREATED AUTHOR AUTHOR'S ORGANIZ ATION 09/30/2023 [facility] DATE CREATED AUTHOR AUTHOR'S ORGANIZ ATION 04/19/2024 [facility] Reason for Visit (unrecogniz ed section and content) Status Reason Specialty Diagnoses / Procedures Referred By Contact Referred To Contact Pending Review Radiology Diagnoses Localized swelling of chest wall Procedures US SOFT TISSUE LIMITED AREA Louisa Moses APRN - CNP [address] [facility] [address] [place] [address] Status Reason Specialty Diagnoses / Procedures Referre d By Contact Referred To Contact Closed Radiology Diagnoses Abnormal ultrasound Soft tissue swelling of chest wall Procedures MRI CHEST W CONTRAST Louisa Moses APRN - DOCK WORKER [address] [place] [address] Specialty Diagnoses / Procedures Referred By Contac t Referred To Contact Radiology Diagnoses Generalized abdominal pain Procedures CT ABDOMEN PELVIS W IV CONTRAST Additional Contrast? Radiologist Recommendation Sandi Pappas DO [address] [place] [address] Referral ID Status Reason Start Date Expiration Date Visits Re quested Visits Authorized [id number] Denied 08/20/2021 08/20/2022 1 0 Specialty Diagnoses / Procedures Referred By Contac t Referred To Contact Radiology Diagnoses Lower abdominal pain Acute diverticulitis Procedures CT ABDOMEN PELVIS W IV CONTRAST Additional Contrast? Radiologist Recommendation CT ABDOMEN PELVIS W WO CONTRAST Additional Contrast? Radiologist Recommendation Starr Ignacio, SIEBEL CRM DEVELOPER - DOCK WORKER [address] [place] [address] Referral ID Status Reason Start Date Expiration Date V isits Requested Visits Authorized [id number] Pending Review 11/26/2022 11/13/2023 1 1 Care Teams (unrecognized sec tion and content) Vault Maker Relationship Specialty Start Date End Date Louisa Moses SIEBEL CRM DEVELOPER - DOCK WORKER [address] [place], [place] [id number] PCP - General Family Nurse Practitioner 09/25/20 Team Status: Inactive Member Role Status Dates Palak Paz , DO Primary Care Provider Active Oliver De Los Santos DO Emergency Provider Active Team Status: Active Member Role Status Dates Palak Paz , DO Primary Care Provider Active Vault Maker Relationship Specialty Start Date End Date Louisa Moses SIEBEL CRM DEVELOPER - DOCK WORKER [address] [place], [place] [id number] PCP - General Family Nurse Practitioner 09/25/20 Vault Maker Relationship Specialty Start Date End Date Sandi Pappas MD [facility] [address] [place], [place] [id number] PCP - General Internal Medicine 11/11/23 Vault Maker Relationship Specialty Start Date End Date Sandi Pappas MD [address] [place], [place] [id number] PCP - General Internal Medicine 11/11/23 Goals (unrecognized section and content) Goals may be documented in a n alternate section FOR RECORDS PERTAINING TO PATIENTS WHO ARE OR HAVE BEEN ENROLLED IN A CHEMICAL DEPENDENCY/SUBSTANCEABUSE PROGRAM, SOME INFORMATION MAY BE OMITTED. This clinical summary was aggregated from multiple sources. Caution should be exercised in using it in the provision of clinical care. This summary normalizes information from multiple sources, and as a consequence, information in this document may materially change the coding, format and clinical context of patient data. In addition, data may be omitted in some cases. CLINICAL DECISIONS SHOULD BE BASED ON THE PRIMARY CLINICAL RECORDS. [employer] [facility]. provides no warranty or guarantee of the accuracy or completeness of information in this document.
== END 2024-10-03 07:40 | disposition home or self-care (01) ==
LOC: MAMMO 07:39
PROVIDERS: Visit Provider Nurse Practitioner Women's Health
DX: Z12.31 Encounter for screening mammogram for malignant neoplasm of breast (principal); Z80.3 Family history of malignant neoplasm of breast
CPT/HCPCS: 77063; 77067